=== PATIENT | female | born 1935 | race Hispanic/Latino ===

== ENCOUNTER 2017-04-11 07:23 | Inpatient (IN) | payer MEDICARE, BC ==
--- NOTE | 2017-04-11 08:16 | ED PDOC ---
Arrival/HPI - General Chief Complaint: Dizziness/Lightheaded Time Seen by Provider: 04/11/17 07:34 Historian: Patient - History of Present Illness Narrative History of Present Illness (Text): 04/11/17 07:59 An 81 year old female, whose past medical history includes hypertension, TIA, and diabetes, presents to the emergency department for dizziness. The patient states that the moment she woke up this morning she noticed dizziness. She states that she tried to get up and walk when she fell, landed on her right sided, hit her head. No loss of consciousness. No weakness to arms or legs. No visual symptoms. The patient notes that last night she did not experience these symptoms. The patient denies LOC, injury/trauma, fevers, chills, headache, chest pain, shortness of breath, dyspnea on exertion, cough, abdominal pain, nausea, vomiting, diarrhea, back pain, neck pain, urinary/bowel changes, or any other complaint. PMD: Dr. Cordova 04/11/17 18:44 Time/Duration: Other (This Morning) Symptom Onset: Sudden Symptom Course: Unchanged Activities at Onset: Rest, Light Context: Home Past Medical History - Provider Review Nursing Documentation Reviewed: Yes - Infectious Disease Hx of Infectious Diseases: None - Tetanus Immunization Tetanus Immunization: Unknown - Cardiac Hx Hypertension: Yes - Neurological Hx Transient Ischemic Attacks (TIA): Yes Hx Vertigo: Yes - HEENT Hx HEENT Disorder: Yes (sx for deviated septum and tonsils) - Endocrine/Metabolic Hx Diabetes Mellitus Type 2: Yes (No medications) Hx Hypothyroidism: Yes - Hematological/Oncological Hx Blood Transfusions: No Hx Blood Transfusion Reaction: No - Musculoskeletal/Rheumatological Hx Musculoskeletal Disorders: No - Gastrointestinal Hx Gastrointestinal Disorders: Yes (colon polyps removed 2 yrs ago) - Psychiatric Hx Emotional Abuse: No Hx Physical Abuse: No Hx Substance Use: No - Surgical History Hx Hysterectomy: Yes - Anesthesia Hx Anesthesia Reactions: Yes Hx Malignant Hyperthermia: No - Suicidal Assessment Feels Threatened In Home Enviroment: No Family/Social History - Physician Review Nursing Documentation Reviewed: Yes Family/Social History: No Known Family HX Smoking Status: Never Smoked Hx Alcohol Use: No Hx Substance Use: No Hx Substance Use Treatment: No Allergies/Home Meds Allergies/Adverse Reactions: Allergies No Known Allergies Allergy (Verified 04/11/17 07:37) Home Medications: Home Meds Medication Instructions Recorded Confirmed Amlodipine/Valsartan [Amlodipine 1 tab PO DAILY 04/11/17 04/11/17 Besylate-Valsartan 5 mg-160 mg] Carbidopa/Levodopa 25/100 mg 0.5 tab PO BID 04/11/17 04/11/17 [Sinemet] Furosemide [Lasix] 40 mg PO DAILY PRN 04/11/17 04/11/17 Levothyroxine [Synthroid] 112 mcg PO DAILY 04/11/17 04/11/17 Olopatadine 0.1% Opht [Patanol 5 ml OD DAILY 04/11/17 04/11/17 0.1% Opht Soln] Rosuvastatin Calcium [Crestor] 5 mg PO DAILY 04/11/17 04/11/17 Tobramycin/Dexamethasone [Tobradex 5 ml OD TID 04/11/17 04/11/17 St 0.05%-0.3% 5 ml] Review of Systems - Physician Review All systems were reviewed & negative as marked: Yes - Review of Systems Constitutional: absent: Fevers, Night Sweats ENT: absent: Sore Throat Respiratory: absent: SOB, Cough Cardiovascular: Other (near syncope). absent: Chest Pain, ROGERS Gastrointestinal: absent: Abdominal Pain, Stool Changes, Diarrhea, Nausea, Vomiting Genitourinary Female: absent: Urine Output Changes Musculoskeletal: absent: Back Pain, Neck Pain Neurological: Dizziness. absent: Headache Physical Exam Vital Signs Reviewed: Yes Vital Signs Temp Pulse Resp BP Pulse Ox 04/11/17 12:18 174/88 H 04/11/17 11:47 72 16 159/72 H 100 04/11/17 09:47 97.9 F 67 17 152/70 H 98 04/11/17 07:36 97.8 F 68 16 169/67 H 98 Temperature: Afebrile Blood Pressure: Hypertensive Pulse: Regular Respiratory Rate: Normal Appearance: Positive for: Well-Appearing, Non-Toxic, Comfortable Pain Distress: None Mental Status: Positive for: Alert and Oriented X 3 Finger Stick Blood Glucose: 132 - Systems Exam Head: Present: Atraumatic, Normocephalic Pupils: Present: PERRL Extroacular Muscles: Present: EOMI, Other (visual acuity and mendosa intact) Mouth: Present: Moist Mucous Membranes Pharnyx: No: ERYTHEMA Neck: Present: Normal Range of Motion. No: Meningeal Signs Respiratory/Chest: Present: Clear to Auscultation. No: Respiratory Distress Cardiovascular: Present: Regular Rate and Rhythm, Murmurs Abdomen: No: Tenderness Back: No: CVA Tenderness Upper Extremity: Present: Other (superficial abrasion to thumb). No: Cyanosis Lower Extremity: No: Edema Neurological: Present: CN II-XII Intact, Speech Normal, Motor Func Grossly Intact, Normal Sensory Function, Normal Cerebellar Funct, Norm Deep Tendon Reflexes, Memory Normal, Normal 2Pt Descrimination. No: Gait Normal Skin: Present: Warm Psychiatric: Present: Alert Medical Decision Making ED Course and Treatment: 04/11/17 08:31 Impression: An 81 year old female presents to the emergency department with dizziness since she woke up this morning. Plan: -- Head CT -- EKG -- Labs -- Chest X-ray -- Aspirin -- Reassess and disposition Prior Visits: Notes and results from previous visits were reviewed. Patient was last seen in the emergency department on 05/11/13, the patient was treated in the emergency department for hyperglycemia and UTI. The patient was discharged home on Bactrim and advised to follow up with her PMD. Progress Notes: Patient with prior hx of dizziness and gait disturbance which she states she has been evaluated by neurologist Dr. Rogers. States that last night she felt well, and AWOKE with gait instability to point that she fell onto her right side , but did not pass out. On exam, no nystagmus noted, no acute visual distrubance , no chest pain or sob. No slurred speech or facial droop. NO headache. No fever. No focal weakness. Normal rapid alternating movements and normal finger to nose. She is unsteady when she attempt to stand. There is abrasion to thumb but no bony pain or deformity. No hip or upper extremity pain or deformity noted. No neck pain noted. Abrasion cleaned. NOT A TPA CANDIDATE as patient awoke with these symptoms, unknown time of onset , and mild symptoms at this time. PRIOR mri and mra were reviewed from earlier this year. CT head ordered. CT HEAD WITHOUT CONTRAST Dictator : Poli Hoyos MD Report Date : 04/11/2017 09:05:25 IMPRESSION: No acute findings CHEST X-RAY Dictator : Poli Hoyos MD Report Date : 04/11/2017 10:27:49 IMPRESSION: No active disease. On re-exam, no chest pain or sob. NO dizziness at rest. Symptoms not worse with turning head. No recent URI or ear pain. ASA ordered. Patient will be admitted to telemetry bed for cardiac monitoring, serial neuro exams, and neuro consultation. Case d/w her PMD Dr. Cordova, who requests admission to Dr. Montague's service. Treatment plan reviewed with patient. - Lab Interpretations Lab Results: 04/11/17 08:23 04/11/17 08:23 Lab Results 04/11/17 08:25: Blood Type AB POSITIVE, Antibody Screen Negative, BBK History Checked No verified bt 04/11/17 08:23: Sodium 143, Potassium 4.0, Chloride 107, Carbon Dioxide 28, Anion Gap 12, BUN 29 H, Creatinine 1.0, Est GFR ( Amer) > 60, Est GFR ( Non-Af Amer) 53, Random Glucose 147 H, Calcium 9.1, Total Bilirubin 0.6, AST 22 , ALT 33, Alkaline Phosphatase 74, Lactate Dehydrogenase 478, Total Creatine Kinase 51, Troponin I < 0.01, Total Protein 6.0, Albumin 3.6, Globulin 2.4, Albumin/Globulin Ratio 1.5, Triglycerides 50, Cholesterol 133, LDL Cholesterol Direct 41, HDL Cholesterol 81 H 04/11/17 08:23: PT 11.4, INR 1.04, APTT 25.4 04/11/17 08:23: WBC 3.2 L, RBC 4.22, Hgb 12.8, Hct 39.3, MCV 93.1, MCH 30.3, MCHC 32.6, RDW 13.2, Plt Count 143, MPV 9.8, Gran % 60.7, Lymph % (Auto) 28.2, Brantley % (Auto) 7.4 H, Eos % (Auto) 3.4, Baso % (Auto) 0.3, Gran # 1.96, Lymph # 0.9 L, Brantley # 0.2, Eos # 0.1, Baso # 0.01 04/11/17 07:33: POC Glucose (mg/dL) 132 H I have reviewed the lab results: Yes - RAD Interpretation Radiology Orders: 04/11/17 08:06 HEAD W/O CONTRAST [CT] Stat CHEST PORTABLE [RAD] Stat - EKG Interpretation Interpreted by ED Physician: Yes Type: 12 lead EKG - Medication Orders Current Medication Orders: Amlodipine Besylate (Norvasc) 10 mg PO DAILY [facility] Last Admin: 04/11/17 12:18 Dose: 10 mg MAR Blood Pressure Document 04/11/17 12:18 (Rec: 04/11/17 12:19 [id number]) Blood Pressure Blood Pressure (100/60-150/90 mm Hg) 174/88 Aspirin (Aspirin Chewable) 81 mg PO DAILY [facility] Atorvastatin Calcium (Lipitor) 10 mg PO DIN [facility] Last Admin: 04/11/17 18:00 Dose: 10 mg Levothyroxine Sodium (Synthroid) 112 mcg PO 0600 [facility] Meclizine HCl (Antivert) 12.5 mg PO TID [facility] Last Admin: 04/11/17 18:01 Dose: 12.5 mg Discontinued Medications Aspirin (Aspirin) 325 mg PO STAT ONE Stop: 04/11/17 08:08 Last Admin: 04/11/17 08:28 Dose: 325 mg Levothyroxine Sodium (Synthroid) 50 mcg PO 0600 [facility] - Scribe Statement The provider has reviewed the documentation as recorded by the Nani Puentes Provider Scribe Attestation: All medical record entries made by the Scribe were at my direction and personally dictated by me. I have reviewed the chart and agree that the record accurately reflects my personal performance of the history, physical exam, medical decision making, and the department course for this patient. I have also personally directed, reviewed, and agree with the discharge instructions and disposition. Disposition/Present on Arrival - Present on Arrival Any Indicators Present on Arrival: No History of DVT/PE: No History of Uncontrolled Diabetes: No Urinary Catheter: No History of Decub. Ulcer: No History Surgical Site Infection Following: None - Disposition Have Diagnosis and Disposition been Completed?: Yes Diagnosis: Dizziness, Gait disturbance, Near syncope, Abrasion Disposition: HOSPITALIZED Disposition Time: 09:35 Patient Plan: Admission, Telemetry Patient Problems: Current Active Problems Problem Status Onset Dizziness Acute Gait disturbance Acute Condition: FAIR
[2017-04-11 08:28] LABS: BASO # 0.01 K/mm3 (0.0-2.0); BASO % 0.3 % (0.0-3.0); EOS # 0.1 (0.0-0.7); EOS % 3.4 % (1.5-5.0); GRAN # 1.96 (1.4-6.5); GRAN % 60.7 % (50.0-68.0); HEMATOCRIT 39.3 % (36.0-48.0); LYMPH # 0.9 (1.2-3.4); LYMPH % 28.2 % (22.0-35.0); MEAN CELL VOLUME 93.1 fl (80.0-105.0); MEAN CORPUSCULAR HEMOGLOBIN 30.3 pg (25.0-35.0); MEAN CORPUSCULAR HGB CONC 32.6 g/dl (31.0-37.0); MEAN PLATELET VOLUME 9.8 fl (7.0-11.0); MONO # 0.2 (0.1-0.6); MONO % 7.4 % (1.0-6.0); RED CELL DISTRIBUTION WIDTH 13.2 % (11.5-14.5); WHITE BLOOD COUNT 3.2 10^3/ul (4.5-11.0)
[2017-04-11 08:39] LABS: ALB/GLOB RATIO 1.5 (1.1-1.8); ALKALINE PHOSPHATASE 74 U/L (38-126); ALT/SGPT 33 U/L (7-56); AST/SGOT 22 U/L (14-36); BILIRUBIN,TOTAL 0.6 mg/dL (0.2-1.3); BLOOD UREA NITROGEN 29 mg/dL (7-21); CALCIUM 9.1 mg/dL (8.4-10.5); CARBON DIOXIDE 28 mmol/L (21-33); CHLORIDE 107 mmol/L (98-107); CHOLESTEROL 133 mg/dL (130-200); GFR AFRICAN-AMERICAN > 60; GLUCOSE,RANDOM 147 mg/dL (70-110); SODIUM 143 mmol/L (132-148)
[2017-04-11 08:41] LABS: INR 1.04 (0.93-1.08); PARTIAL THROMBOPLASTIN TIME 25.4 Seconds (25.1-36.5)
[2017-04-11 09:01] LABS: TROPONIN I < 0.01 ng/mL
--- NOTE | 2017-04-11 09:07 | CT ---
PROCEDURE: CT HEAD WITHOUT CONTRAST. HISTORY: dizziness, hx of cva COMPARISON: None available. TECHNIQUE: Axial computed tomography images were obtained through the head/brain without intravenous contrast. Radiation dose: Total exam DLP = 920 mGy-cm. This CT exam was performed using one or more of the following dose reduction techniques: Automated exposure control, adjustment of the mA and/or kV according to patient size, and/or use of iterative reconstruction technique. FINDINGS: HEMORRHAGE: No intracranial hemorrhage. BRAIN: No mass effect or edema. Chronic microvascular changes are seen in the periventricular white matter. No acute findings VENTRICLES: Unremarkable. No hydrocephalus. CALVARIUM: Unremarkable. PARANASAL SINUSES: Unremarkable as visualized. No significant inflammatory changes. MASTOID AIR CELLS: Unremarkable as visualized. No inflammatory changes. OTHER FINDINGS: None. IMPRESSION: No acute findings
--- NOTE | 2017-04-11 10:29 | RAD ---
HISTORY: dizziness COMPARISON: 05/11/2013 FINDINGS: LUNGS: No active pulmonary disease. PLEURA: No significant pleural effusion identified, no pneumothorax apparent. CARDIOVASCULAR: Normal. OSSEOUS STRUCTURES: No significant abnormalities. VISUALIZED UPPER ABDOMEN: Normal. OTHER FINDINGS: None. IMPRESSION: No active disease.
[2017-04-11 12:44] LABS: CHOLESTEROL 142 mg/dL (130-200)
[2017-04-11 12:59] LABS: TROPONIN I < 0.01 ng/mL
[2017-04-11 14:05] VITALS: BMI 28.3
--- NOTE | 2017-04-11 14:34 | CARD ---
APPROVED REPORT EKG Measurement Heart [id number] <Conclusion> Normal sinus rhythm Cannot rule out Anteroseptal infarct, age undetermined Abnormal ECG
--- NOTE | 2017-04-11 17:09 | MRI ---
PROCEDURE: MRI BRAIN WITHOUT CONTRAST HISTORY: near syncope COMPARISON: 11/29/2016 MRI TECHNIQUE: Multiplanar, multisequence MR images of the brain were obtained without intravenous contrast enhancement. FINDINGS: HEMORRHAGE: None DWI: No evidence of an acute or early subacute infarction. BRAIN PARENCHYMA: No mass effect or edema. Severe chronic microvascular changes are seen in the periventricular white matter. The findings are unchanged. There are no acute findings VENTRICLES: Unremarkable. No hydrocephalus. CRANIUM: Unremarkable. ORBITS: Grossly unremarkable. PARANASAL SINUSES/MASTOIDS: Clear VASCULAR SYSTEM: Skull base flow voids intact. OTHER FINDINGS: None. IMPRESSION: No acute intracranial abnormalities.
--- NOTE | 2017-04-12 03:58 | CON ---
NEUROLOGY CONSULTATION DATE: REASON FOR CONSULTATION: Dizziness. HISTORY OF PRESENT ILLNESS: The patient is an 81-year-old female who has been asked for evaluation of dizziness. The patient stated this morning when she woke up she was feeling extremely dizzy, which was described as spinning sensation. She tries to get up and walk and she fell and landed on a right side, hit her head. She did not have any loss of consciousness. She states, yesterday also she fell for no reason and was unable to get up. She did not have any loss of hearing or ringing in the ears. She denies any nausea or vomiting associated with dizziness. She does states that when she moves her head she feels dizzy. She also states that she has difficulty with walking because of dizziness. Denies any focal weakness in arms or legs. REVIEW OF SYSTEMS: Denies any headache. Positive for dizziness. Denies any chest pain, shortness or breath, abdominal pain, constipation, diarrhea, cough, sputum production. PAST MEDICAL HISTORY: Includes, hypercholesterolemia, hypothyroidism, hypertension. MEDICATIONS: At home included; furosemide, Sinemet, amlodipine, tobramycin, Crestor, levothyroxine. ALLERGIES: NO KNOWN DRUG ALLERGIES. SOCIAL HISTORY: The patient denies smoking, use of alcohol or illicit drugs. FAMILY HISTORY: Reviewed and noncontributory to the case. PHYSICAL EXAMINATION GENERAL: The patient is an elderly female lying on bed in no acute distress. VITAL SIGNS: Blood pressure is lying 142/64 and standing 172/80, heart rate is 70 per minute, breathing at a rate of 16 per minute, temperature is 98.2 degree Fahrenheit. HEENT: Head is normocephalic and atraumatic. NECK: Supple. There are no carotid bruits. LUNGS: Clear. CARDIOVASCULAR: S1 and S2 audible. No murmurs. ABDOMEN: Soft and nontender. Bowel sounds are present. NEUROLOGIC: Mental status: The patient is awake and alert,oriented to time, place and person. Speech is fluent. Naming and repetition normal. Memory and cognition are intact. Cranial nerve examination: Pupils are 4 mm bilaterally reactive to light. Visual mendosa are full. Extraocular movements are intact. There is no facial asymmetry. The plantar are downgoing bilaterally. Tongue in the midline. Motor examination, tone is normal. Power is 5/5 bilaterally in all extremities. Reflexes are +1 and symmetrical. Cerebellar; [id number] shows no dysmetria. Gait is deferred at the movement as she is complaining of dizziness. Usually, the patient walks with the help of walker. LABORATORY DATA: Labs reviewed shows WBC of 3.2, hemoglobin 12.8, hematocrit of 39.3 and platelets of 143. Sodium is 143, potassium 4.0, chloride of 107,carbon dioxide content 28, BUN of 29, creatinine of 1.0 and glucose of 147. She had CT scan of the head done, which shows no acute findings. Subsequently, she had MRI of the brain done, which shows no acute intracranial abnormalities. Severe chronic microvascular ischemic changes noted. IMPRESSION: 1. 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 2. Gait dysfunction. RECOMMENDATION: 1. The patient was started on meclizine 12.5 mg 3 times a day, which is to be continued. 2. The patient also to be continued on aspirin with underlying cerebrovascular disease. 3. The patient to be started on physical therapy for gait imbalance. 4. The patient did have an electroencephalogram. 5. This may be done as outpatient. 6. Please continue supportive care and other treatment. Thank you for the opportunity to participate in the care of this patient. Peter Louis MD
--- NOTE | 2017-04-12 05:33 | HP ---
HISTORY OF PRESENT ILLNESS: The patient is an 81-year-old, seen and examined. The patient of , came to the emergency room. He was feeling very dizzy. The patient states she woke up this morning and when she got out, she had extreme dizziness as if she is going to pass out. Even then she woke up, but she fell. Although, she states that when she went to bed, she was feeling fine. Denies any loss of consciousness. Did not hit her head. Denies any fever. No nausea or vomiting. No diarrhea. No chest pain. No palpitation. No cough or congestion. No hemoptysis. No hematemesis. PAST MEDICAL HISTORY: Significant for, 1. Vertigo. 2. TIA. 3. History of noninsulin-dependent diabetes. 4. Hypertension. 5. She had a nuclear stress test in 2011, negative. 6. She has carotid ultrasound done in 01/2015; it was unremarkable, 20% to 39% of blockage. 7. 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 No evidence of aneurysm. 8. MRI of the brain shows extensive periventricular white matter signal abnormality. ALLERGIES: SHE IS NOT ALLERGIC TO ANY MEDICATION MEDICATIONS AT HOME: There is no medication noted. REVIEW OF SYSTEMS: Complained of feeling dizzy and lightheaded. PHYSICAL EXAMINATION: GENERAL: She is awake, alert, oriented, communicative. VITAL SIGNS: She is afebrile. Pulse 67, respirations 17, blood pressure 152/70. LUNGS: Bilateral good fair airflow. No rhonchi or crackles. HEART: S1 and S2 audible. ABDOMEN: Soft, nontender, no rebound, no guarding. NEUROLOGIC: She is awake, alert, oriented, communicative. LABORATORY EXAM: WBC 3.2, hemoglobin 12.8, hematocrit 39, and platelets of 143. PT 11.4, INR 1.04. Chemistry; sodium 143, potassium 4.0, chloride 107, CO2 of 28, BUN 29, and creatinine 1.0. Blood sugar of 147. HDL is 81. She had a CT scan of the head done that is unremarkable. X-ray chest is negative for infiltrates. ASSESSMENT: 1. Dizziness, rule out lacunar infarct versus vertigo. No focal deficit. 2. History of hypertension. 3. History of [id number] diabetes, diet-controlled. 4. Hypothyroidism. PLAN: I will order for a carotid Doppler. We will start her on aspirin. Neuro consult will be requested. We will start her on antihypertensive, start physical therapy. We will evaluate the patient in a.m. Kami Montague MD
[2017-04-12] MEDS ORDERED: Levothyroxine 50 MCG TAB PO SCH (06:00)
[2017-04-12] MEDS: Levothyroxine 112 MCG TAB PO SCH (06:42)
[2017-04-12 07:39] LABS: ALB/GLOB RATIO 1.5 (1.1-1.8); ALKALINE PHOSPHATASE 70 U/L (38-126); ALT/SGPT 47 U/L (7-56); AST/SGOT 24 U/L (14-36); BILIRUBIN,TOTAL 0.7 mg/dL (0.2-1.3); BLOOD UREA NITROGEN 25 mg/dL (7-21); CALCIUM 9.1 mg/dL (8.4-10.5); CARBON DIOXIDE 30 mmol/L (21-33); CHLORIDE 106 mmol/L (95-110); GFR AFRICAN-AMERICAN > 60; GLUCOSE,RANDOM 109 mg/dL (70-110); SODIUM 142 mmol/L (132-148); TOTAL PROTEIN 5.7 g/dL (5.8-8.3)
[2017-04-12 08:00] LABS: FREE T4 1.03 ng/dL (0.78-2.19)
[2017-04-12 08:14] LABS: THYROID STIMULATING HORMONE 5.25 mIU/mL (0.46-4.68)
--- NOTE | 2017-04-12 12:18 | PN ---
SUBJECTIVE: The patient has no complaints of any chest pain. No shortness of breath. She says her dizziness is better. PHYSICAL EXAMINATION: VITAL SIGNS: Temperature is 98.5, pulse is 65, blood pressure 150/62, respiration is 18. GENERAL: The patient is lying in bed, flat, comfortable. HEENT: No oral lesion. Anicteric sclerae. Moist mucosa. NECK: No JVD, adenopathy, or thyromegaly. CARDIOVASCULAR: S1 and S2, regular. No murmurs, rubs, or gallops. LUNGS: Clear to auscultation bilaterally. No wheeze, rales, or rhonchi. ABDOMEN: Bowel sounds are positive, soft, nontender and nondistended. EXTREMITIES: No cyanosis, clubbing or edema. LABORATORY DATA: White count 3.2, hemoglobin 12.8. IMAGING: MRI of the brain shows no acute intracranial abnormalities. ASSESSMENT: 1. Dizziness, improved. 2. Hypertension. 3. Diabetes type 2. 4. Hypothyroidism. PLAN: The patient is currently comfortable, is on aspirin. The patient had a MRI that shows no acute intracranial abnormalities. The patient is on Norvasc for hypertension. She is going to continue with Colace for constipation and Lipitor for dyslipidemia. She is on Synthroid for hypothyroidism. The patient has a carotid Doppler, I have been ordered and is pending. Jeffery Ambriz MD
--- NOTE | 2017-04-12 18:23 | CON ---
DATE: 04/12/2017 REFERRING PHYSICIAN: Kami Montague MD REASON FOR CONSULTATION: Evaluation of a patient known to me from outpatient followup, presents with near syncope, dizziness, and vertigo. HISTORY OF PRESENT ILLNESS: The patient is a pleasant 81-year-old white female with a history of hypertension, history of carotid artery narrowing, history of mild hyperlipidemia, history of diet-controlled NIDDM, history of hypothyroidism. The patient states that when she woke up Thursday morning, she was profoundly dizzy, felt like she could not get out of bed, felt that she was going to fall, she had mild vertigo. She presented to the hospital for evaluation of a possible impending CVA. The patient was seen in the emergency room, found not to have a CVA and was admitted for observation to telemetry. The patient had a head CT scan which showed chronic ischemic changes. She had an MRI of the head which showed chronic ischemic changes, no acute findings. She is scheduled for a carotid Doppler study. Her blood pressure control was stable post transfer out of the emergency room. In the emergency room, she had a blood pressure as high as 174 systolic with a diastolic of 88. We are asked to evaluate the patient for management of her hypertension in the setting of her lightheadedness and dizziness. PAST MEDICAL HISTORY: Significant for hypertension; peripheral vascular disease with mild carotid artery stenosis; NIDDM, diet controlled; hypothyroidism; osteopenia. MEDICATIONS AT HOME: Include that of Lasix p.r.n., Sinemet, Exforge 5/160, eyedrops, Crestor, Synthroid. ALLERGIES: NO KNOWN ALLERGIES TO MEDICATIONS. CURRENT MEDICATIONS IN HOSPITAL: Include that of meclizine, aspirin, Colace, Lipitor, Norvasc and Synthroid. SOCIAL HISTORY: No history of cigarette smoking. The patient was never a cigarette smoker. No history of alcohol use. The patient drinks coffee and tea. The patient has a supportive family. FAMILY HISTORY: Mother and father of old age, noncontributory. REVIEW OF SYSTEMS: GENERAL: The patient states weight and appetite have been stable. ENT: Denies any hearing or visual problems. PULMONARY: No shortness of breath. No COPD, no bronchitis, emphysema. CARDIAC: No history. GI: No nausea, no vomiting, no diarrhea. No constipation, abdominal pain. : No history of chronic kidney disease. No history of urinary tract infections. PROFESSIONAL SKATE[employer]ER: Postmenopausal. ENDOCRINE: History of diet-controlled diabetes. Hemoglobin A1cs have remained normal. MUSCULOSKELETAL: No complaints. NEURO: History of intermittent dizziness. No history of seizures or syncope. Positive history of subclinical lacunar infarcts. HEME/ONC: No history of anemia or malignancy. PSYCHIATRIC HISTORY: Is negative. PHYSICAL EXAMINATION GENERAL: The patient is currently seen on telemetry. She remains in sinus rhythm. She appears to be in no acute distress. She is ambulating around the room with a cane. Her daughter is in the room. VITAL SIGNS: Blood pressure presently is ranging from 113-150 systolic, diastolic surgery from 49-68. Heart rate is 65, respiratory rate is 18, temperature 98.5, oxygen saturation is 97%. HEENT: Shows it to be normocephalic, atraumatic. Conjunctivae are pink. Sclera nonicteric. Pupils equal and reactive to light and accommodation. Extraocular muscles are intact. Posterior pharynx is normal. NECK: Supple. No neck vein distention. No thyromegaly, no lymphadenopathy, no bruits. CHEST: Clear to auscultation and percussion. No rales, no rhonchi, no wheezing. CARDIOVASCULAR: Shows a regular rate and rhythm without murmurs, rubs, or gallops. ABDOMEN: Soft. Nontender. No masses. No hepatosplenomegaly. Normal bowel sounds. No rebound or guarding. BACK: No CVAT. No spinal tenderness. EXTREMITIES: Show a normal gait while ambulating with a cane. No cyanosis, no clubbing, or edema. Distal lower extremity pulses 2+ bilaterally. NEUROLOGIC: Shows her to be alert, oriented x3. Deep tendon reflexes normal. No focal deficits. LABORATORY DATA AND IMAGING STUDIES: Admitting EKG showed normal sinus rhythm. Admitting chest x-ray showed no acute pulmonary disease. Admitting head CT and head MRI showed positive white matter ischemic changes consistent with a core infarcts. Carotid Doppler study is pending. CBC: White blood cell count 3.2, hemoglobin of 12.8 with a platelet count of 143,000. Coags normal. Chemistry showed normal electrolytes, BUN 25 with creatinine of 1.0. Calcium 9.1. Liver enzymes are normal. Albumin is 3.4. Free T4 level is normal at 1.03. Mild elevation of TSH of 5.25. No urine was. Microbiology: No cultures were sent. ASSESSMENT: 1. Status post episode of profound dizziness with mild vertigo. The patient was seen by Neurology, felt not to have any acute cerebral event. She was felt to have possible labyrinthitis with vertigo. The patient has had episodes similar to this in the past, but not as profound. She is currently on meclizine. She currently feels well. She is completing the neural workup as per neurology consultation. 2. Hypertension. Initial elevation of blood pressure on admission. Currently blood pressure is acceptable. The patient should return to taking Exforge 50/160. Calcium channel iesha therapy alone will not be enough to hold her. She was checked for orthostatic hypotension of anything. She had mild orthostatic hypotension. 3. Non-insulin dependent diabetes mellitus, diet controlled. Sugar control is acceptable. 4. History of peripheral vascular disease with history of internal carotid artery stenosis. This is being further evaluated with a carotid Doppler study. 5. History of hyperlipidemia. The patient had been on outpatient Crestor therapy and should return to taking this upon discharge. 6. History of osteopenia. The patient has been taking calcium and vitamin D supplements. PLAN 1. Discussed with the patient and her daughter in detail. There is no evidence for any ongoing acute cerebral event. In all likelihood, she had an episode of dizziness associated with vertigo, labyrinthitis. She is currently receiving medication for vertigo. She will likely need to use this on a p.r.n. basis in the outpatient setting. 2. Obtain carotid artery Doppler study in light of her history of carotid artery narrowing. 3. I would resume Exforge 5/160 upon discharge. 4. Explained to the patient that she did not have orthostatic hypotension, which she was under the impression that she had. She had orthostatic hypertension, will require blood pressure medication in the dose given to her in the outpatient setting. 5. Continue statin therapy upon discharge. 6. Continue to monitor the patient on telemetry. 7. Complete neuro workup and perhaps tentative discharge form in the next 24 hours. Thank you for letting me partake and share in the care of our mutual patient. Mayo Cordova MD
[2017-04-13] MEDS: Levothyroxine 112 MCG TAB PO SCH (06:17)
[2017-04-13] MEDS ORDERED: VALSARTAN PO SCH (10:00)
[2017-04-13] MEDS ORDERED: AMLODIPINE PO SCH (10:00)
--- NOTE | 2017-04-13 10:12 | PN ---
NEUROLOGY PROGRESS NOTE SUBJECTIVE: The patient is sitting on the chair, in no acute distress, still complains of dizziness which is described as woozy feeling. PHYSICAL EXAMINATION: VITAL SIGNS: Her blood pressure is 119/66, heart rate is 70 per minute, breathing at the rate of 16 per minute and temperature is 98.4 degree Fahrenheit. HEENT EXAM: Head is normocephalic and atraumatic. NECK: Supple. There are no carotid bruits. LUNGS: Clear. CARDIOVASCULAR EXAM: S1 and S2 audible. No murmurs. ABDOMEN: Soft and nontender. Bowel sounds present. NEUROLOGY EXAMINATION: Mental status: The patient is awake, alert and oriented to time, place and person. Speech is fluent. Naming and repetition is normal. Memory and cognition are intact. Cranial nerve examination: Pupils are 3 mm bilaterally, reactive to light. Visual mendosa are full. Extraocular movements are intact. There is no facial asymmetry. Palate is upgoing bilaterally and tongue is midline. Motor examination: Tone is normal. Power is 5/5 bilaterally in all extremities. Reflexes are +1 and symmetrical. Plantars are downgoing bilaterally. Gait is unsteady. IMPRESSION: 1. Dizziness, likely secondary to labyrinthine dysfunction with falls. 2. Gait dysfunction. RECOMMENDATIONS: 1. The patient to be continued on meclizine. 2. The patient also to be continued on aspirin with underlying cerebrovascular disease. 3. The patient to have physical therapy for gait imbalance. 4. The patient is a good rehab candidate. 5. Please continue supportive care and other treatments. Thank you for the opportunity to participate in the care of this patient. Peter Louis MD
[2017-04-13] MEDS: AMLODIPINE PO SCH (10:34)
[2017-04-13] MEDS: VALSARTAN PO SCH (10:34)
--- NOTE | 2017-04-13 11:54 | US ---
PROCEDURE: Bilateral carotid artery duplex ultrasound HISTORY: Carotid stenosis syncope PHYSICIAN(S): Mushtaq Sales MD. TECHNIQUE: Duplex sonography and color-flow Doppler were used to evaluate the carotid bifurcations and limited segments of the vertebral arteries bilaterally. FINDINGS: There is mild smooth heterogeneous plaque noted at the carotid bifurcations bilaterally. The peak systolic velocity in the proximal right internal carotid artery is 85 cm/sec. This corresponds to a 20 to 39% proximal right ICA stenosis. Normal systolic velocities are noted in the proximal right external carotid artery. There is antegrade flow in the right vertebral artery. The peak systolic velocity in the proximal left internal carotid artery is 89 cm/sec. This corresponds to a 20 to 39% proximal left ICA stenosis. Normal systolic velocities are noted in the proximal left external carotid artery. There is antegrade flow in the left vertebral artery. IMPRESSION: 1. Bilateral 20-39% proximal ICA stenoses. 2. Antegrade flow in both vertebral arteries.
--- NOTE | 2017-04-13 14:37 | PN ---
DATE: 04/13/2017 SUBJECTIVE: The patient is an 81-year-old, seen and examined, sitting in chair, still feel dizzy, has unstable gait. Denies any nausea or vomiting. PHYSICAL EXAMINATION: VITAL SIGNS: She is afebrile, pulse 70, respirations 18, blood pressure 119/66. LUNGS: Bilateral fair airflow. No rhonchi or crackle. HEART: S1 and S2, audible. ABDOMEN: Soft, nontender. No rebound. No guarding. NEUROLOGIC: The patient is awake, alert, oriented, communicative, able to move all extremity, has generalized weakness. LABORATORY DATA: Her hemoglobin A1c is 7.1, TSH is 5.25. Her MRI of the brain is unremarkable. Carotid Doppler shows bilateral 39% ICA. ASSESSMENT: 1. Extreme dizziness, status post fall. 2. Hypothyroidism. 3. Mild dehydration. 4. History of hypertension. 5. Vertigo. 6. Deconditioning and difficulty walking. 7. Non-insulin dependent diabetes. PLAN: The patient is clinically stable, medically, but she is unstable. Given her age, she needs physical therapy. Requested for TCU evaluation as soon as bed is available. The patient can be transferred to TCU. Kami Montague MD
--- NOTE | 2017-04-13 18:34 | PN ---
DATE: 04/13/2017 SUBJECTIVE: Patient is seen sitting in chair. She has missed her periods.. She denies any headaches, dizziness. She denies any chest pain, palpitations. She denies any abdominal pain. She does report that she gets dizzy when she stands up. She denies any urinary complaints. PHYSICAL EXAMINATION: GENERAL: Elderly male, sitting in chair. VITAL SIGNS: Blood pressure 119/66, heart rate 70, respiratory rate 18, temperature 98.4. HEENT: Normocephalic, atraumatic. Neck: Supple, no JVD. LUNGS: Bilateral equal air entry, rales present. CARDIAC: S1 and S2, regular rate and rhythm, no murmur, no rub. ABDOMEN: Obese, distended, soft, nontender, bowel sounds present. EXTREMITIES: No lower extremity edema. INTAKE AND OUTPUT: 540/700. LABORATORY DATA: No CBC today. Chemistry yesterday; sodium 142, potassium 4.0, chloride 106, CO2 of 30, BUN 25, creatinine 1.0, glucose 109, calcium 9.1, A1c 7.1, albumin 3.4. MRI of the brain from 04/11/2017, no acute intracranial abnormalities. Carotid ultrasound, bilateral 20% to 39% proximal ICA stenosis. Antegrade flow in both vertebral arteries. CURRENT MEDICATIONS: Antivert, aspirin, Colace, Lipitor, Synthroid. ASSESSMENT: 1. Near-syncope/dizziness and vertigo. 2. Hypertension. 3. Hyperlipidemia. 4. Peripheral vascular disease. 5. Kkr-cylavwb-fmqhvaavk diabetes mellitus. 6. Osteopenia. PLAN: 1. No evidence of any cerebrovascular events. 2. Continue Exforge. 3. Continue statin. 4. Ambulate the patient. 5. Check orthostatic vital signs. Indu Holt MD
[2017-04-14] MEDS: Levothyroxine 112 MCG TAB PO SCH (08:27)
[2017-04-14] MEDS: AMLODIPINE PO SCH (09:50)
[2017-04-14] MEDS: VALSARTAN PO SCH (09:50)
[2017-04-14] MEDS ORDERED: Home Med 1 UNIT PO SCH (14:00)
--- NOTE | 2017-04-14 14:23 | PN ---
SUBJECTIVE: The patient is currently seen on 5R. She is sitting in bed. She no longer has any vertigo or dizziness. She states that she has not gotten up to walk without the help of physical therapy. The patient is interested in going to the TCU for rehabilitation. Noninvasive carotid study was noted. Only minimal narrowing 20-39%. MEDICATIONS: Medication list reviewed. The patient is currently on Antivert, aspirin, Colace, Exforge, Lipitor, Synthroid. OBJECTIVE: INTAKE/OUTPUT: Intake 540, output 700. VITAL SIGNS: Blood pressure ranging from 126-150 systolic, diastolic 65-76. Heart rate 67, temperature 97 with a respiratory rate of 18. Oxygen saturation is 98%. HEENT: Exam shows her to be normocephalic, atraumatic. Conjunctivae are pink. Sclera nonicteric. NECK: Supple. No neck vein distention. CHEST: Clear to auscultation and percussion. CARDIOVASCULAR: Regular rate and rhythm without murmurs, rubs or gallops noted. ABDOMEN: Soft. Bowel sounds normal. No rebound or guarding. No masses. EXTREMITIES: Show no lower extremity edema. No cyanosis or clubbing. Distal lower extremity pulses 2+ bilaterally. NEURO: Shows her to be alert, oriented with no gross focal motor or sensory deficits noted. LABORATORY DATA AND IMAGING: Carotid Doppler study shows mild bilateral internal carotid artery narrowing. No recent labs. Chemistries from 04/12 showed a BUN of 25, creatinine of 1.0. Electrolytes were all normal. Hemoglobin A1c was 7.1%. Normal free T4 level. Slight elevation of TSH. ASSESSMENT: 1. Status post episode of profound dizziness and vertigo. Perhaps labyrinthitis. MRI of the head and CT scans are all negative for any acute findings. Noninvasive carotid study shows no significant narrowing. The patient had been seen by Neurology. 2. History of hypertension. Initial blood pressure was elevated at the time of presentation. Currently, she remains normotensive on Exforge therapy 5/160. The patient does not require any additional amlodipine. 3. Rkj-cuvrepz-cwhlzxupy diabetes mellitus. Hemoglobin A1c 7.1%. The patient will continue a diabetic diet. 4. History of hyperlipidemia. The patient will continue statin therapy. In the outpatient, she was on Crestor. She is currently on Lipitor. 5. History of osteopenia, currently stable on calcium, vitamin D therapy. PLAN: 1. Agree with intensified physical therapy and plan for the patient to transfer to the TCU. 2. Continue present blood pressure medication. 3. Continue Antivert. Attempt to wean off this medication as labyrinthitis resolves. 4. Follow labs on a periodic basis. Mayo Cordova MD
[2017-04-15] MEDS: Levothyroxine 112 MCG TAB PO SCH (06:34)
[2017-04-15 06:44] LABS: HEMATOCRIT 39.3 % (36.0-48.0); MEAN CELL VOLUME 93.8 fl (80.0-105.0); MEAN CORPUSCULAR HEMOGLOBIN 30.5 pg (25.0-35.0); MEAN CORPUSCULAR HGB CONC 32.6 g/dl (31.0-37.0); MEAN PLATELET VOLUME 9.9 fl (7.0-11.0); RED CELL DISTRIBUTION WIDTH 13.2 % (11.5-14.5); WHITE BLOOD COUNT 4.4 10^3/ul (4.5-11.0)
[2017-04-15 07:07] LABS: ALB/GLOB RATIO 1.4 (1.1-1.8); BILIRUBIN,TOTAL 0.7 mg/dL (0.2-1.3); CALCIUM 9.2 mg/dL (8.4-10.5); MAGNESIUM 2.1 mg/dL (1.7-2.2); PHOSPHOROUS 3.5 mg/dL (2.5-4.5); POTASSIUM 4.8 mmol/L (3.6-5.0); TOTAL PROTEIN 5.7 g/dL (5.8-8.3)
--- NOTE | 2017-04-15 09:32 | CP.PCM.PN ---
Subjective - Date & Time of Evaluation Date of Evaluation: 04/15/17 Time of Evaluation: 09:28 - Subjective Subjective: Neurology progress note for Dr. Rodriguez's service Patient seen and examined with daughter at bedside. No acute overnight events or new complaints reported. Denied chest pain, palpitations, SOB. Objective - Vital Signs/Intake and Output Vital Signs (last 24 hours): Temp Pulse Resp BP Pulse Ox 97.7 F 73 18 173/80 H 98 04/15/17 08:00 04/15/17 08:00 04/15/17 08:00 04/15/17 08:00 04/15/17 08:00 Intake and Output: 04/15/17 04/15/17 06:59 18:59 Intake Total 480 Balance 480 - Medications Medications: Current Medications Aspirin (Aspirin) 325 mg PO DAILY [facility] Atorvastatin Calcium (Lipitor) 10 mg PO DIN [facility] Last Admin: 04/14/17 17:33 Dose: 10 mg Docusate Sodium (Colace) 100 mg PO BID [facility] Last Admin: 04/14/17 17:33 Dose: Not Given Home Med (Home Med) 1 unit PO DAILY [facility] Last Admin: 04/14/17 09:50 Dose: 1 unit Home Med (Home Med) 1 unit PO DAILY [facility] Levothyroxine Sodium (Synthroid) 112 mcg PO 0600 [facility] Last Admin: 04/15/17 06:34 Dose: 112 mcg Meclizine HCl (Antivert) 12.5 mg PO TID [facility] Last Admin: 04/14/17 17:33 Dose: 12.5 mg - Labs Labs: 04/15/17 06:30 04/15/17 06:30 PT 11.4 SECONDS (9.4-12.5) 04/11/17 08:23 INR 1.04 (0.93-1.08) 04/11/17 08:23 APTT 25.4 Seconds (25.1-36.5) 04/11/17 08:23 - Constitutional Appears: No Acute Distress - Head Exam Head Exam: ATRAUMATIC, NORMAL INSPECTION, NORMOCEPHALIC - Eye Exam Eye Exam: EOMI Pupil Exam: PERRL - ENT Exam ENT Exam: Mucous Membranes Moist - Respiratory Exam Respiratory Exam: Clear to Ausculation Bilateral. absent: Rales, Rhonchi, Wheezes - Cardiovascular Exam Cardiovascular Exam: +S1, +S2. absent: Gallop, JVD, Murmur - GI/Abdominal Exam GI & Abdominal Exam: Soft. absent: Distended, Firm, Guarding, Rigid, Tenderness , Rebound - Neurological Exam Neurological Exam: Alert, Awake, CN II-XII Intact, Oriented x3 - Psychiatric Exam Psychiatric exam: Normal Affect, Normal Mood - Skin Skin Exam: Dry, Intact, Normal Color, Warm Assessment and Plan - Assessment and Plan (Free Text) Plan: 81yo female with history of -Recommend continue with meclizine for dizziness -Recommend continue aspirin for history of CAD -Continue with physical therapy for physical strengthening -Patient would benefit from subacute rehabilitation for further improvement of physical deconditioning -Continue present medical management as per primary team -Further recommendations as per attending, Dr. Rodriguez Patient seen and case discussed/reviewed with attending, Dr. Rodriguez
[2017-04-15] MEDS: VALSARTAN PO SCH (10:33)
[2017-04-15] MEDS: CEREFOLIN PO SCH (10:33)
[2017-04-15] MEDS: AMLODIPINE PO SCH (10:33)
--- NOTE | 2017-04-15 11:58 | PN ---
DATE: SUBJECTIVE: The patient is an 81-year-old, seen and examined, sitting in chair. She states she feels lot better, no dizziness, still has unstable gait. PHYSICAL EXAMINATION VITAL SIGNS: She is afebrile, pulse 75, respirations 17, blood pressure 125/71. LUNGS: Bilateral fair airflow. No rhonchi or crackles. HEART: S1 and S2 audible. ABDOMEN: Soft and nontender. No rebound. No guarding. NEUROLOGIC: The patient is awake, alert and oriented. Communicative. LABORATORY DATA: MRI of the brain is unremarkable. Carotid Doppler is unremarkable. ASSESSMENT: 1. Near syncope, status post fall. 2. Unstable gait. 3. Hypertension. 4. Hyperlipidemia. 5. Insulin-dependent diabetes. PLAN: Awaiting TCU evaluation and acceptance. If the patient is accepted in TCU sent for rehab. Kami Montague MD
--- NOTE | 2017-04-15 13:48 | PN ---
SUBJECTIVE: The patient is an 81-year-old, seen and examined, sitting in chair, seems to be comfortable, still has generalized weakness and unstable gait. PHYSICAL EXAMINATION: VITAL SIGNS: She is afebrile, pulse 73, respirations 18, blood pressure 173/80. LUNGS: Bilateral fair airflow. No rhonchi or crackles. HEART: S1 and S2 audible. ABDOMEN: Soft and nontender. No rebound. No guarding. NEUROLOGIC: She is awake, alert and oriented. Communicative. Ambulates with minimal help. LABORATORY DATA: WBC is 4.4, hemoglobin 12.8, hematocrit 39.3, platelet 163. Chemistry: Sodium 144, potassium 4.8, chloride 107, CO2 of 32, BUN 26, creatinine 1.1. Blood sugar of 124. ASSESSMENT: 1. Status post near syncope and status post multiple fall. 2. Hypertension. 3. Hyperlipidemia. 4. Deconditioning and difficulty walking. 5. Acute on chronic vertigo. PLAN: I will continue the patient on current medication. She is scheduled to be transferred to [facility]. Kami Montague MD
--- NOTE | 2017-04-15 15:26 | PN ---
DATE: 04/15/2017 SUBJECTIVE: The patient is seen sitting in chair. She is awake. She is alert. She is comfortable. She still has some dizziness, she reports. She denies any headaches, lightheadedness. She complains of weakness in her lower extremities. PHYSICAL EXAMINATION: GENERAL: Elderly lady, sitting in chair. VITAL SIGNS: Blood pressure 173/80?, heart rate 73, respiratory rate 18, temperature 97.7. HEENT: Normocephalic, atraumatic. NECK: Supple, no JVD. LUNGS: Bilateral equal air entry, no rales. CARDIAC: S1, S2, regular rate and rhythm, no murmur, no rub. ABDOMEN: Obese, distended, soft, nontender, bowel sounds present. EXTREMITIES: No lower extremity edema. INTAKE AND OUTPUT: 1280/not charted. LABORATORY DATA: WBC 4.4, hemoglobin 12.8, hematocrit 39, platelets 163. Sodium 144, potassium 4.8, chloride 107, CO2 32, BUN 26, creatinine 1.1, glucose 111, calcium 9.2, phosphorus 3.5 magnesium 2.1, albumin 3.3. CURRENT MEDICATIONS: Meclizine, aspirin, Colace, Lipitor, Synthroid. ASSESSMENT:. 1. Status post episode of vertigo/dizziness. ?Labyrinthitis. 2. Hypertension. 3. Oeq-bftnqbh-xfvogqbsr diabetes mellitus. 4. Hyperlipidemia. 5. Osteopenia. PLAN: 1. Physical therapy. 2. Continue antihypertensives. 3. Continue Antivert. 4. The patient is not orthostatic. Indu Holt MD
[2017-04-16] MEDS: Levothyroxine 112 MCG TAB PO SCH (06:10)
[2017-04-16 08:27] VITALS: BP 142/74; PULSE 67; RESP 18; TEMP 97.9; O2SAT 95
[2017-04-16] MEDS: AMLODIPINE PO SCH (10:38)
[2017-04-16] MEDS: CEREFOLIN PO SCH (10:38)
[2017-04-16] MEDS: VALSARTAN PO SCH (10:38)
--- NOTE | 2017-04-16 13:43 | DS ---
HISTORY OF PRESENT ILLNESS: The patient is 81 years old, seen and examined, sitting in chair, seems to be comfortable. No nausea. No vomiting. No diarrhea. Eating and tolerating. Still has unstable gait. Awaiting to be transferred to TCU. PHYSICAL EXAMINATION: VITAL SIGNS: She is afebrile. Pulse 67, .respirations 18 and blood pressure 142/74. LUNGS: Bilateral fair airflow. No rhonchi or crackle. HEART: S1 and S2 audible. ABDOMEN: Soft and nontender. No rebound. No guarding. NEUROLOGIC: The patient is awake, alert, oriented and communicative. LABORATORY DATA: WBC is 4.4, hemoglobin 12.8, hematocrit 39.3 and platelets 163. Chemistry; blood sugar is 128. ASSESSMENT: 1. Status post near syncope. 2. Status post fall. 3. Hypertension. 4. Hyperlipidemia. 5. Deconditioning and difficulty walking. 6. Chronic vertigo. PLAN: The patient will be transferred to TCU where she will receive physical therapy. I will follow up the patient. Kami Montague MD
--- NOTE | 2017-04-16 20:31 | PN ---
DATE: 04/16/2017 SUBJECTIVE: The patient is seen sitting in bed. She is awake. She is alert. She is comfortable. She denies any headaches. She denies any chest tightness. She reports some light headedness when she was walking. She denies dizziness? PHYSICAL EXAMINATION: GENERAL: Elderly lady sitting in bed. VITAL SIGNS: Blood pressure 142/74, heart rate 67, respiratory rate 18, temperature 97.9. HEENT: Normocephalic, atraumatic. NECK: Supple, no JVD. LUNGS: Bilateral equal entry, no rales. EXTREMITIES: No lower extremity edema. LABORATORY DATA: WBC 4.4, hemoglobin 12.8, hematocrit 39 and platelets 163. No labs today. CURRENT MEDICATIONS: Antivert, aspirin, Colace, Lipitor, Synthroid, and Exforge 5/160, . ASSESSMENT: 1. Dizziness, labyrinthitis/vertigo. 2. Hypertension, well controlled. 3. See-pwbtpcu-rrcqjuxdv diabetes mellitus. 4. Hyperlipidemia. 5. No evidence of orthostasis. PLAN: 1. Continue current antihypertensives. 2. Physical therapy. 3. Agree with plan for TCU. 4. Continue antibiotics. Indu Holt MD
== END 2017-04-16 15:40 | DRG 149 ==
LOC: ED 07:23 → ERH 10:46 → 2RNO 12:49 → OBSVTOIN 04-13 10:10 → 5RNO 04-13 18:57
PROVIDERS: ADMIT Internal Medicine; ATTEND Internal Medicine
DX: H83.09 Labyrinthitis, unspecified ear (principal); E11.9 Type 2 diabetes mellitus without complications; I65.23 Occlusion and stenosis of bilateral carotid arteries; E86.0 Dehydration; I73.9 Peripheral vascular disease, unspecified; I10 Essential (primary) hypertension; R26.2 Difficulty in walking, not elsewhere classified; E78.00 Pure hypercholesterolemia, unspecified; E03.9 Hypothyroidism, unspecified; M85.80 Other specified disorders of bone density and structure, unspecified site; Z86.73 Personal history of transient ischemic attack (TIA), and cerebral infarction without residual deficits; Z86.010 Personal history of colon polyps; Z90.710 Acquired absence of both cervix and uterus

== ENCOUNTER 2017-05-20 11:28 | Emergency (ER) | payer MEDICARE, BC ==
[2017-05-20 11:28] VITALS: BMI 28.3
[2017-05-20] MEDS ORDERED: TDAP Vaccine 0.5 mL Syr IM ONE (12:02)
--- NOTE | 2017-05-20 12:52 | CT ---
PROCEDURE: CT HEAD WITHOUT CONTRAST. HISTORY: fall COMPARISON: 04/11/2017 TECHNIQUE: Axial computed tomography images were obtained through the head/brain without intravenous contrast. Radiation dose: Total exam DLP = 770 mGy-cm. This CT exam was performed using one or more of the following dose reduction techniques: Automated exposure control, adjustment of the mA and/or kV according to patient size, and/or use of iterative reconstruction technique. FINDINGS: HEMORRHAGE: No intracranial hemorrhage. BRAIN: No mass effect or edema. Severe chronic microvascular changes are seen in the periventricular white matter. VENTRICLES: Unremarkable. No hydrocephalus. CALVARIUM: Unremarkable. PARANASAL SINUSES: Unremarkable as visualized. No significant inflammatory changes. MASTOID AIR CELLS: Unremarkable as visualized. No inflammatory changes. OTHER FINDINGS: There is a small amount of air in the subcutaneous scalp of the right frontal region IMPRESSION: No acute intracranial findings
--- NOTE | 2017-05-20 13:01 | CT ---
PROCEDURE: CT ORBITS WITHOUT CONTRAST. HISTORY: fall COMPARISON: None available. TECHNIQUE: Axial CT images of the orbits were obtained. Coronal and sagittal reformats were generated. Radiation dose: Total exam DLP = 711 mGy-cm. This CT exam was performed using one or more of the following dose reduction techniques: Automated exposure control, adjustment of the mA and/or kV according to patient size, and/or use of iterative reconstruction technique. FINDINGS: RIGHT ORBIT: RIGHT BONY ORBIT: Normal. RIGHT INTRAORBITAL STRUCTURES: Globe: Normal. Extraocular muscles: Normal. Post septal space: Normal. Optic Nerve: Normal. Lacrimal Apparatus: Normal. RIGHT PRESEPTAL SOFT TISSUES: Normal. LEFT ORBIT: LEFT BONY ORBIT: Normal. LEFT INTRAORBITAL STRUCTURES: Globe: Normal. Extraocular muscles: Normal. Post septal space: Normal Optic Nerve: Normal. . Lacrimal Apparatus: Normal. LEFT PRESEPTAL SOFT TISSUES: Normal. OTHER: There is a small amount of air in the subcutaneous tissues of the scalp over the right frontal region. This is probably due to laceration. There is no evidence of fracture through the sinuses. IMPRESSION: There is a small amount of air in the subcutaneous tissues of the scalp over the right frontal region. This is probably due to laceration. There is no evidence of fracture through the sinuses. No evidence of fracture
--- NOTE | 2017-05-20 13:29 | ED PDOC ---
Arrival/HPI <James Keith - Last Filed: 05/20/17 15:21> - General Historian: Patient - History of Present Illness Time/Duration: Prior to Arrival Context: Tripped <Gregoria Valencia - Last Filed: 05/20/17 23:10> - General Chief Complaint: Trauma Time Seen by Provider: 05/20/17 12:01 - History of Present Illness Narrative History of Present Illness (Text): 05/20/17 13:17 A 81 year old female, whose past medical history includes hypertension, TIA, and diabetes as documented on prior charts, presents to the emergency department for evaluation after mechanical fall prior to arrival. Patient reports this morning she left her home carrying a bag in each hand plus her cane. She states while walking on the sidewalk she tripped and fell to the ground with point of impact to her right supraorbital rim. Patient complains of a mild headache, and abrasions to right supraorbital rim, forehead and right knee. Patient denies any other injuries, loss of consciousness, focal neurological deficits, dizziness, vision changes, neck pain, fever, chills, nausea, vomiting, abdominal pain, back pain, chest pain, palpitations, shortness of breath or any other complaints. Patient reports she has been in her usual state of health for the past several days. (Gregoria Valencia) Past Medical History - Provider Review Nursing Documentation Reviewed: Yes - Infectious Disease Hx of Infectious Diseases: None - Tetanus Immunization Tetanus Immunization: Unknown - Cardiac Hx Hypertension: Yes - Pulmonary Hx Respiratory Disorders: No - Neurological HX Cerebrovascular Accident: Yes (multiple TIA's) - HEENT Hx HEENT Disorder: Yes (sx for deviated septum and tonsils) - Renal Hx Renal Disorder: No Other/Comment: #rd Kidney - Endocrine/Metabolic Hx Diabetes Mellitus Type 2: Yes Hx Hypothyroidism: Yes - Hematological/Oncological Hx Blood Disorders: No - Integumentary Hx Dermatological Disorder: Yes Hx Basal Cell Carcinoma: Yes - Musculoskeletal/Rheumatological Hx Falls: Yes - Gastrointestinal Hx Gastrointestinal Disorders: Yes (colon polyps removed 2 yrs ago) - Genitourinary/Gynecological Hx Genitourinary Disorders: No - Psychiatric Hx Emotional Abuse: No Hx Physical Abuse: No Hx Substance Use: No - Surgical History Hx Hysterectomy: Yes - Anesthesia Hx Anesthesia Reactions: Yes Hx Malignant Hyperthermia: No - Suicidal Assessment Feels Threatened In Home Enviroment: No <Gregoria Valencia - Last Filed: 05/20/17 23:10> Family/Social History - Physician Review Nursing Documentation Reviewed: Yes Family/Social History: Unknown Family HX Smoking Status: Never Smoked Hx Alcohol Use: No Hx Substance Use: No Hx Substance Use Treatment: No <Gregoria Valencia - Last Filed: 05/20/17 23:10> Allergies/Home Meds <SagarJames Padilla - Last Filed: 05/20/17 15:21> <Gregoria Valencia - Last Filed: 05/20/17 23:10> Allergies/Adverse Reactions: Allergies No Known Allergies Allergy (Verified 05/20/17 11:43) Home Medications: Home Meds Medication Instructions Recorded Confirmed Amlodipine/Valsartan 1 tab PO DAILY 04/11/17 04/16/17 [Amlodipine-Valsartan 5-160 mg] Carbidopa/Levodopa 25/100 mg 0.5 tab PO BID 04/11/17 04/16/17 [Sinemet] Furosemide [Lasix] 40 mg PO DAILY PRN 04/11/17 04/16/17 Levothyroxine [Synthroid] 112 mcg PO DAILY 04/11/17 04/16/17 Olopatadine 0.1% Opht [Patanol 5 ml OD DAILY 04/11/17 04/16/17 0.1% Opht Soln] Rosuvastatin Calcium [Crestor] 5 mg PO DAILY 04/11/17 04/16/17 Tobramycin/Dexamethasone [Tobradex 5 ml OD TID 04/11/17 04/16/17 St Eye Drops] Review of Systems - Physician Review All systems were reviewed & negative as marked: Yes - Review of Systems Constitutional: absent: Fevers, Night Sweats Eyes: absent: Vision Changes Respiratory: absent: SOB Cardiovascular: absent: Chest Pain, Palpitations Gastrointestinal: absent: Abdominal Pain, Nausea, Vomiting Musculoskeletal: absent: Back Pain, Neck Pain Skin: Other (Abrasions to right supraorbital rim, forehead and right knee) Neurological: Headache. absent: Dizziness, Focal Weakness <Gregoria Valencia - Last Filed: 05/20/17 23:10> Physical Exam Vital Signs Reviewed: Yes Temperature: Afebrile Blood Pressure: Normal Pulse: Tachycardic Respiratory Rate: Normal Appearance: Positive for: Well-Appearing, Non-Toxic, Comfortable Pain Distress: None Mental Status: Positive for: Alert and Oriented X 3 - Systems Exam Head: Present: Abrasion, Laceration (2.5 cm laceration above right supraorbital rim with mild hematoma, full thickness. 2-3 cm superficial laceration to forehead.) Pupils: Present: PERRL Extroacular Muscles: Present: EOMI Conjunctiva: Present: Normal Mouth: Present: Moist Mucous Membranes Neck: Present: Normal Range of Motion. No: MIDLINE TENDERNESS, Paraspinal Tenderness Respiratory/Chest: Present: Clear to Auscultation, Good Air Exchange. No: Respiratory Distress, Accessory Muscle Use Cardiovascular: Present: Regular Rate and Rhythm, Normal S1, S2. No: Murmurs Abdomen: Present: Normal Bowel Sounds. No: Tenderness, Distention, Peritoneal Signs Back: Present: Normal Inspection. No: Midline Tenderness, Paraspinal Tenderness Upper Extremity: Present: Normal Inspection, Normal ROM, NORMAL PULSES. No: Cyanosis, Edema Lower Extremity: Present: NORMAL PULSES, Normal ROM, Other (Abrasions to right knee). No: Edema, CALF TENDERNESS, Tenderness, Swelling, Deformity, Temperature Abnormalties, Neurovascularly Intact Neurological: Present: GCS=15, CN II-XII Intact, Speech Normal, Motor Func Grossly Intact, Normal Sensory Function, Normal Cerebellar Funct Skin: Present: Warm, Dry, Normal Color. No: Rashes Psychiatric: Present: Alert, Oriented x 3, Normal Insight, Normal Concentration <Gregoria Valencia - Last Filed: 05/20/17 23:10> Vital Signs Temp Pulse Resp BP Pulse Ox 05/20/17 15:53 98.5 F 78 128/79 95 05/20/17 13:00 98.2 F 86 16 132/76 97 05/20/17 11:37 97.6 F 98 H 18 134/78 99 Medical Decision Making <James Keith A - Last Filed: 05/20/17 15:21> <Gregoria Valencia - Last Filed: 05/20/17 23:10> ED Course and Treatment: 05/20/17 13:17 Impression: A 81 year old female presents for evaluation after mechanical fall. Patient complains of a headache and abrasions to right supraorbital rim, forehead and right knee. Plan: -- Head CT -- Orbits/Facials CT -- Chest xray -- Pelvis xray -- Right knee xray -- Tylenol and Boostrix vaccine -- Reassess and disposition Progress Notes: Report Date : 05/20/2017 12:50:58 PROCEDURE: CT HEAD WITHOUT CONTRAST. Dictator : Poli Hoyos MD IMPRESSION: No acute intracranial findings Report Date : 05/20/2017 12:59:51 PROCEDURE: CT ORBITS WITHOUT CONTRAST. Dictator : Poli Hoyos MD IMPRESSION: There is a small amount of air in the subcutaneous tissues of the scalp over the right frontal region. This is probably due to laceration. There is no evidence of fracture through the sinuses. No evidence of fracture Report Date : 05/20/2017 13:50:26 PROCEDURE: Right Knee Radiographs. Dictator : Anna Cid IMPRESSION: No fracture or dislocation. Senescent changes Report Date : 05/20/2017 13:53:11 PROCEDURE: Radiographs of the pelvis. Dictator : Anna Cid IMPRESSION: No fracture dislocation. Bilateral hip osteoarthrosis left greater than right. If further evaluation is clinically indicated consider MRI of the hips/pelvis Report Date : 05/20/2017 13:55:45 Procedure: Chest xray Dictator : Anna Cid IMPRESSION: No interval acute cardiopulmonary pathology noted (Gregoria Valencia) - RAD Interpretation Radiology Orders: 05/20/17 12:01 HEAD W/O CONTRAST [CT] Stat 05/20/17 12:26 ORBITS/ FACIALS W/O CONTRAST [CT] Stat 05/20/17 12:27 KNEE RIGHT 2 VIEWS (AP & LAT) [RAD] Stat PELVIS ONE VIEW [RAD] Stat 05/20/17 12:28 CHEST TWO VIEWS (PA/LAT) [RAD] Stat - Medication Orders Current Medication Orders: Discontinued Medications Acetaminophen (Tylenol 325mg Tab) 650 mg PO STAT STA Stop: 05/20/17 12:03 Last Admin: 05/20/17 12:32 Dose: 650 mg Tetanus/Reduced Diphtheria/Acell Pertussis (Boostrix Vaccine Inj) 0.5 ml IM .ONCE ONE Stop: 05/20/17 12:03 Last Admin: 05/20/17 12:32 Dose: 0.5 ml Immunization Registry Document 05/20/17 12:32 KKL (Rec: 05/20/17 12:32 KK [id number]) Immunization Registry Consent Date 05/20/17 <James Keith - Last Filed: 05/20/17 15:21> - Scribe Statement The provider has reviewed the documentation as recorded by the Scribe <Gregoria Valencia - Last Filed: 05/20/17 23:10> - Scribe Statement Jessica Bledsoe Provider Scribe Attestation: All medical record entries made by the Scribe were at my direction and personally dictated by me. I have reviewed the chart and agree that the record accurately reflects my personal performance of the history, physical exam, medical decision making, and the department course for this patient. I have also personally directed, reviewed, and agree with the discharge instructions and disposition. (Gregoria Valencia) Disposition/Present on Arrival - Present on Arrival Any Indicators Present on Arrival: No History of DVT/PE: No History of Uncontrolled Diabetes: No Urinary Catheter: No History of Decub. Ulcer: No History Surgical Site Infection Following: None - Disposition Have Diagnosis and Disposition been Completed?: Yes Disposition Time: 15:25 Patient Plan: Discharge <James Keith Valerie - Last Filed: 05/20/17 15:21> - Present on Arrival Any Indicators Present on Arrival: No History of DVT/PE: No History of Uncontrolled Diabetes: No Urinary Catheter: No History of Decub. Ulcer: No History Surgical Site Infection Following: None - Disposition Have Diagnosis and Disposition been Completed?: Yes Patient Plan: Discharge <Gregoria Valencia - Last Filed: 05/20/17 23:10> - Disposition Diagnosis: Laceration, Head trauma Disposition: HOME/ ROUTINE Condition: STABLE Discharge Instructions (ExitCare): Facial Laceration (ED) Additional Instructions: Keep wound clean and dry Follow up with your Doctor in 6days for suture removal Return to ED or any fever. discharge, redness to area Referrals: Kami Montague MD [Primary Care Provider] - Follow up with primary Forms: MedTest DX (Sami)
--- NOTE | 2017-05-20 13:52 | RAD ---
PROCEDURE: Right Knee Radiographs. HISTORY: fall COMPARISON: None. FINDINGS: BONES: Small subchondral cystic changes in the medial femoral tibial compartment are noted. No fracture. JOINTS: Mild medial femoral tibial and patellofemoral osteoarthritis. JOINT EFFUSION: No significant appearing suprapatellar joint effusion. OTHER FINDINGS: Constricting stocking inferred per soft tissue transition level - lower leg. Anterior superior patellar cortical hyperostoses Atherosclerotic vascular calcifications IMPRESSION: No fracture or dislocation. . Senescent changes
--- NOTE | 2017-05-20 13:54 | RAD ---
PROCEDURE: Radiographs of the pelvis. HISTORY: fall COMPARISON: None. FINDINGS: BONES: Pelvic Bones: Unremarkable. Hips: Bilateral osteoarthrosis -left greater than right JOINTS: Sacroiliac Joints: Mild right sclerotic arthrosis Pubic Symphysis: Unremarkable. OTHER FINDINGS: Inferior lumbar marginal osteophytosis, facet hypertrophy, intervertebral disc space narrowing with vacuum disc phenomena and diffuse subchondral sclerosis. Left hemipelvic clip. Bilateral hemipelvic calcifications probably vascular and left hemipelvic phleboliths. Hypertrophic changes right greater trochanter IMPRESSION: No fracture dislocation. Bilateral hip osteoarthrosis left greater than right . If further evaluation is clinically indicated consider MRI of the hips/pelvis
--- NOTE | 2017-05-20 13:57 | RAD ---
HISTORY: rout med exam COMPARISON: 04/11/2017 TECHNIQUE: Chest PA and lateral FINDINGS: LUNGS: No active pulmonary disease. Trace scarring inter disc or atelectasis lateral right upper lung zone no change PLEURA: No significant pleural effusion identified. No pneumothorax apparent. Left apical pleural thickening is possible -no significant change here is believe present CARDIOVASCULAR: Top-normal heart size no central pulmonary venous congestion OSSEOUS STRUCTURES: Rightward thoracic convexity and mild thoracic spondylosis VISUALIZED UPPER ABDOMEN: Normal. OTHER FINDINGS: None. IMPRESSION: No interval acute cardiopulmonary pathology noted
[2017-05-20 15:52] VITALS: RESP 16
[2017-05-20 15:55] VITALS: BP 128/79; PULSE 78; TEMP 98.5; O2SAT 95
== END 2017-05-20 15:55 | disposition home or self-care (01) ==
LOC: ED 11:28
DX: S01.81XA Laceration without foreign body of other part of head, initial encounter (principal); W01.0XXA Fall on same level from slipping, tripping and stumbling without subsequent striking against object, initial encounter; Y92.480 Sidewalk as the place of occurrence of the external cause; Z23 Encounter for immunization; I10 Essential (primary) hypertension; E11.9 Type 2 diabetes mellitus without complications; E03.9 Hypothyroidism, unspecified; Z86.73 Personal history of transient ischemic attack (TIA), and cerebral infarction without residual deficits

== ENCOUNTER 2017-05-27 17:19 | Emergency (ER) | payer MEDICARE, BC ==
[2017-05-27 17:20] VITALS: BMI 28.3
[2017-05-27 17:33] VITALS: BP 135/77; PULSE 86; RESP 17; TEMP 98.1; O2SAT 99
--- NOTE | 2017-05-27 17:45 | ED PDOC ---
Arrival/HPI - General Chief Complaint: Suture/Staple Removal Time Seen by Provider: 05/27/17 17:21 Historian: Patient - History of Present Illness Narrative History of Present Illness (Text): 05/27/17 17:43 81yr old female presents today for suture removal from right side of forehead. pt states she had head injury on 05/20. no fever/chills. denies headaches or dizziness. denies pain. no other complaints. Past Medical History - Provider Review Nursing Documentation Reviewed: Yes - Travel History Have you recently traveled outside [place] w/in the past 3 mons?: No - Infectious Disease Hx of Infectious Diseases: None - Cardiac Hx Hypertension: Yes - Pulmonary Hx Respiratory Disorders: No - Neurological HX Cerebrovascular Accident: Yes (multiple TIA's) - HEENT Hx HEENT Disorder: Yes (sx for deviated septum and tonsils) - Renal Hx Renal Disorder: No Other/Comment: #rd Kidney - Endocrine/Metabolic Hx Diabetes Mellitus Type 2: Yes Hx Hypothyroidism: Yes - Hematological/Oncological Hx Blood Disorders: No - Integumentary Hx Dermatological Disorder: Yes Hx Basal Cell Carcinoma: Yes - Musculoskeletal/Rheumatological Hx Falls: Yes - Gastrointestinal Hx Gastrointestinal Disorders: Yes (colon polyps removed 2 yrs ago) - Genitourinary/Gynecological Hx Genitourinary Disorders: No - Psychiatric Hx Emotional Abuse: No Hx Physical Abuse: No Hx Substance Use: No - Surgical History Hx Hysterectomy: Yes - Anesthesia Hx Anesthesia: Yes Hx Anesthesia Reactions: Yes Hx Malignant Hyperthermia: No - Suicidal Assessment Feels Threatened In Home Enviroment: No Family/Social History - Physician Review Nursing Documentation Reviewed: Yes Family/Social History: Unknown Family HX Smoking Status: Never Smoked Hx Alcohol Use: No Hx Substance Use: No Hx Substance Use Treatment: No Allergies/Home Meds Allergies/Adverse Reactions: Allergies No Known Allergies Allergy (Verified 05/27/17 17:30) Home Medications: Home Meds Medication Instructions Recorded Confirmed Amlodipine/Valsartan 1 tab PO DAILY 04/11/17 05/27/17 [Amlodipine-Valsartan 5-160 mg] Carbidopa/Levodopa 25/100 mg 0.5 tab PO BID 04/11/17 05/27/17 [Sinemet] Furosemide [Lasix] 40 mg PO DAILY PRN 04/11/17 05/27/17 Levothyroxine [Synthroid] 112 mcg PO DAILY 04/11/17 05/27/17 Olopatadine 0.1% Opht [Patanol 5 ml OD DAILY 04/11/17 05/27/17 0.1% Opht Soln] Rosuvastatin Calcium [Crestor] 5 mg PO DAILY 04/11/17 05/27/17 Tobramycin/Dexamethasone [Tobradex 5 ml OD TID 04/11/17 05/27/17 St Eye Drops] Review of Systems - Review of Systems Constitutional: absent: Fatigue, Fevers Eyes: absent: Vision Changes, Photophobia, Eye Pain Respiratory: absent: SOB, Cough Cardiovascular: absent: Chest Pain, Palpitations Gastrointestinal: absent: Abdominal Pain, Nausea, Vomiting Musculoskeletal: absent: Back Pain, Neck Pain Skin: Laceration Neurological: absent: Headache, Dizziness Physical Exam Vital Signs Reviewed: Yes Vital Signs Temp Pulse Resp BP Pulse Ox 05/27/17 17:33 98.1 F 86 17 135/77 99 Temperature: Afebrile Blood Pressure: Normal Pulse: Regular Respiratory Rate: Normal Appearance: Positive for: Well-Appearing, Non-Toxic, Comfortable Pain Distress: None Mental Status: Positive for: Alert and Oriented X 3 - Systems Exam Head: Present: Ecchymosis, Laceration ([address] along right side of forehead; no edema, no erythema; no purulent discharge; non tender: + ecchymosis. ). No: Tenderness, Swelling Pupils: Present: PERRL Extroacular Muscles: Present: EOMI Mouth: Present: Moist Mucous Membranes Neck: Present: Normal Range of Motion Respiratory/Chest: Present: Clear to Auscultation, Good Air Exchange. No: Respiratory Distress, Accessory Muscle Use Cardiovascular: Present: Regular Rate and Rhythm, Normal S1, S2. No: Murmurs Back: Present: Normal Inspection Upper Extremity: Present: Normal ROM Lower Extremity: Present: Normal ROM Neurological: Present: GCS=15 Skin: Present: Warm, Dry, Normal Color Psychiatric: Present: Alert, Oriented x 3 Medical Decision Making ED Course and Treatment: 05/27/17 18:02 Patient is nontoxic well-appearing in no distress. Vital signs are stable. suture removal: 3sutures removed Wound healing well without signs of infection I advised the patient to keep the wound clean and dry apply bacitracin twice daily and return if symptoms worsen persist or if new symptoms develop. Patient verbalizes understanding of discharge instructions and need for immediate followup. all aspects of this case were discussed the attending of record. Impression: Wound check, suture removal Keep the wound clean and dry Apply bacitracin twice daily Follow up with primary care physician within the next 2 days Return immediately if symptoms worsen persist or if new symptoms develop Disposition/Present on Arrival - Present on Arrival Any Indicators Present on Arrival: No History of DVT/PE: No History of Uncontrolled Diabetes: No Urinary Catheter: No History of Decub. Ulcer: No History Surgical Site Infection Following: None - Disposition Have Diagnosis and Disposition been Completed?: Yes Diagnosis: Visit for suture removal Disposition: HOME/ ROUTINE Disposition Time: 17:49 Patient Plan: Discharge Condition: GOOD Discharge Instructions (ExitCare): Laceration (ED) Additional Instructions: keep wound clean and dry apply bacitracin twice daily Follow up with the primary care physician within the next 2 days. return if symptoms worsen,persist or if new symptoms develop. Referrals: Kami Montague MD [Primary Care Provider] - Follow up with primary Forms: GI Track (Romanian)
== END 2017-05-27 17:50 | disposition home or self-care (01) ==
LOC: ED 17:19
DX: Z48.02 Encounter for removal of sutures (principal)

== ENCOUNTER 2017-08-05 07:17 | Day surgery (SDC) | payer MEDICARE, BC ==
[2017-08-05] MEDS ORDERED: Propofol 10 mg/ml Inj (20 ML) ONE ×2 (08:58→09:17)
[2017-08-05] MEDS ORDERED: Sodium Chloride 0.9% 1,000 ML IV SCH (09:45)
[2017-08-05 10:24] VITALS: BP 141/69; PULSE 67; RESP 18; TEMP 97.6; O2SAT 99
== END 2017-08-05 10:52 | disposition home or self-care (01) ==
LOC: ENDO 07:17
PROVIDERS: ATTEND Specialist
DX: K57.30 Diverticulosis of large intestine without perforation or abscess without bleeding (principal); K63.89 Other specified diseases of intestine; I10 Essential (primary) hypertension; E11.9 Type 2 diabetes mellitus without complications; E03.9 Hypothyroidism, unspecified; I47.1 Supraventricular tachycardia; R32 Unspecified urinary incontinence; Z90.710 Acquired absence of both cervix and uterus; Z86.010 Personal history of colon polyps
CPT/HCPCS: 45378; 82948; J2704; J7040

== ENCOUNTER 2018-03-08 14:50 | Observation (INO) | payer MEDICARE, BC ==
[2018-03-08 14:53] VITALS: BMI 29.0
--- NOTE | 2018-03-08 15:14 | ED PDOC ---
Arrival/HPI - General Chief Complaint: Weakness/Neurological Deficit Time Seen by Provider: 03/08/18 14:57 Historian: Patient - History of Present Illness Narrative History of Present Illness (Text): 03/08/18 15:09 82 year old female, with past medical history of hypertension, hyperlipidemia and TIAs, presents to the emergency department for evaluation of a transient episode of left arm numbness which lasted for 10 minutes approximately 12pm this afternoon. Patient states she called her outpatient neurologist for the presented symptom, and was referred subsequently to the emergency department for medical evaluation. Patient currently informs completely resolved symptoms and denies any somatic complaints. Patient denies any focal weakness, slurred speech, numbness/tingling or any visual changes. Patient denies any fever, chills, nausea, vomiting, diarrhea, abdominal pain, chest pain, shortness of breath, cough, headache, neck pain, back pain or any other complaints. 03/08/18 17:45 Time/Duration: Prior to Arrival Symptom Onset: Gradual Symptom Course: Resolved Activities at Onset: Light Context: Home Past Medical History - Provider Review Nursing Documentation Reviewed: Yes - Infectious Disease Hx of Infectious Diseases: None - Tetanus Immunization Tetanus Immunization: Unknown - Cardiac Hx Hypertension: Yes Hx Pacemaker: No - Pulmonary Hx Respiratory Disorders: No - Neurological Hx Paralysis: No Hx Transient Ischemic Attacks (TIA): Yes - HEENT Hx HEENT Disorder: Yes (sx for deviated septum and tonsils) - Renal Hx Renal Disorder: No Other/Comment: #rd Kidney - Endocrine/Metabolic Hx Diabetes Mellitus Type 2: Yes Hx Hypothyroidism: Yes - Hematological/Oncological Hx Blood Transfusions: No Hx Blood Transfusion Reaction: No - Integumentary Hx Dermatological Disorder: Yes Hx Basal Cell Carcinoma: Yes - Musculoskeletal/Rheumatological Hx Musculoskeletal Disorders: No - Gastrointestinal Hx Gastrointestinal Disorders: Yes (colon polyps removed 2 yrs ago) - Genitourinary/Gynecological Hx Genitourinary Disorders: No - Psychiatric Hx Emotional Abuse: No Hx Physical Abuse: No Hx Substance Use: No - Surgical History Hx Hysterectomy: Yes - Anesthesia Hx Anesthesia Reactions: Yes Hx Malignant Hyperthermia: No - Suicidal Assessment Feels Threatened In Home Enviroment: No Family/Social History - Physician Review Nursing Documentation Reviewed: Yes Family/Social History: Unknown Family HX Smoking Status: Never Smoked Hx Alcohol Use: No Hx Substance Use: No Hx Substance Use Treatment: No Allergies/Home Meds Allergies/Adverse Reactions: Allergies No Known Allergies Allergy (Verified 05/27/17 17:30) Home Medications: Home Meds Medication Instructions Recorded Confirmed Amlodipine/Valsartan 1 tab PO DAILY 04/11/17 08/05/17 [Amlodipine-Valsartan 5-160 mg] Carbidopa/Levodopa 25/100 mg 0.5 tab PO BID 04/11/17 08/05/17 [Sinemet] Levothyroxine [Synthroid] 112 mcg PO DAILY 04/11/17 08/05/17 Olopatadine 0.1% Opht [Patanol 5 ml OD DAILY PRN 04/11/17 08/05/17 0.1% Opht Soln] Rosuvastatin Calcium [Crestor] 5 mg PO DAILY 04/11/17 07/27/17 Tobramycin/Dexamethasone [Tobradex 5 ml OD TID PRN 04/11/17 08/05/17 St Eye Drops] Cinnamon Bark [Cinnamon] 1 tab PO DAILY 07/27/17 08/05/17 Fiber-Tabs 1 tab PO BID 07/27/17 08/05/17 [place]ondon-3 Fatty Acids/Fish Oil [Fish 1 tab PO DAILY 07/27/17 08/05/17 Oil 1,000 mg Capsule] Polyethylene Glycol 3350 [Miralax] 1 pkt PO BID PRN 07/27/17 08/05/17 Turmeric Root Extract [Turmeric] 1 tab PO DAILY 07/27/17 08/05/17 Vit A/Vit C/Biotin/Zinc/Copper 1 tab PO DAILY 07/27/17 08/05/17 [Hair, Skin and Nails Softgel] Vit B12/Levomefolate/Vit B6/B2 1 tab PO DAILY 07/27/17 08/05/17 [Cerefolin Caplet] Vitamin D3 1 tab PO DAILY 07/27/17 08/05/17 Review of Systems - Physician Review All systems were reviewed & negative as marked: Yes - Review of Systems Constitutional: Normal. absent: Fevers Eyes: Normal ENT: Normal Respiratory: Normal. absent: SOB, Cough Cardiovascular: Normal. absent: Chest Pain Gastrointestinal: Normal. absent: Abdominal Pain, Diarrhea, Nausea, Vomiting Genitourinary Female: Normal Musculoskeletal: Normal. absent: Back Pain, Neck Pain Skin: Normal Neurological: Normal. absent: Headache, Dizziness Endocrine: Normal Hemo/Lymphatic: Normal Psychiatric: Normal Physical Exam Vital Signs Reviewed: Yes Vital Signs Temp Pulse Resp BP Pulse Ox 03/08/18 20:39 97.6 F 78 18 143/74 98 03/08/18 20:03 75 140/63 03/08/18 20:01 140/63 03/08/18 19:00 75 18 139/71 97 03/08/18 17:00 79 18 130/68 99 03/08/18 14:51 97.8 F 86 18 144/79 94 L Temperature: Afebrile Blood Pressure: Normal Pulse: Regular Respiratory Rate: Normal Appearance: Positive for: Well-Appearing, Non-Toxic, Comfortable Pain Distress: None Mental Status: Positive for: Alert and Oriented X 3 - Systems Exam Head: Present: Atraumatic, Normocephalic Pupils: Present: PERRL Extroacular Muscles: Present: EOMI Conjunctiva: Present: Normal Mouth: Present: Moist Mucous Membranes Neck: Present: Normal Range of Motion Respiratory/Chest: Present: Clear to Auscultation, Good Air Exchange. No: Respiratory Distress, Accessory Muscle Use Cardiovascular: Present: Regular Rate and Rhythm, Normal S1, S2. No: Murmurs Abdomen: No: Tenderness, Distention, Peritoneal Signs Back: Present: Normal Inspection Upper Extremity: Present: Normal Inspection. No: Cyanosis, Edema Lower Extremity: Present: Normal Inspection. No: Edema Neurological: Present: GCS=15, CN II-XII Intact, Speech Normal Skin: Present: Warm, Dry, Normal Color. No: Rashes Psychiatric: Present: Alert, Oriented x 3, Normal Insight, Normal Concentration Medical Decision Making ED Course and Treatment: 03/08/18 15:03 Impression: 82 year old female presents to the emergency department complaining of transient episode left arm weakness. Differential Diagnosis included but are not limited to: CVA vs. TIA Plan: -- Labs -- CT of head -- EKG -- CXR -- IV Fluids -- UA -- Reassess and disposition Prior Visits: Notes and results from previous visits were reviewed. Progress Notes: 03/08/18 15:05 CODE STROKE ACTIVATED. 03/08/18 15:05 Discussed case with Todd Jc, who is aware and agrees with emergency department management plan. 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 case discussed with dr jimenez. - Lab Interpretations Lab Results: 03/08/18 15:35 03/08/18 15:35 Lab Results 03/08/18 15:35: Blood Type AB POSITIVE, Antibody Screen Negative, BBK History Checked Patient has bt 03/08/18 15:35: Hemoglobin A1c 6.7 H 03/08/18 15:35: Sodium 142, Potassium 4.5, Chloride 107, Carbon Dioxide 28, Anion Gap 11, BUN 31 H, Creatinine 1.0, Est GFR ( Amer) > 60, Est GFR ( Non-Af Amer) 53, Random Glucose 158 H, Calcium 9.1, Total Bilirubin 0.3, AST 25 , ALT 32, Alkaline Phosphatase 90, Troponin I < 0.01, Total Protein 6.2, Albumin 3.6, Globulin 2.6, Albumin/Globulin Ratio 1.4, Triglycerides 163 H, Cholesterol 120 L, LDL Cholesterol Direct 32, HDL Cholesterol 60 03/08/18 15:35: PT 10.9, INR 0.96, APTT 32.9 03/08/18 15:35: WBC 4.0 L, RBC 3.97, Hgb 11.8 L, Hct 37.1, MCV 93.5, MCH 29.7, MCHC 31.8, RDW 13.2, Plt Count 167, MPV 10.0, Gran % 64.8, Lymph % (Auto) 25.3, [place] % (Auto) 7.3 H, Eos % (Auto) 2.3, Baso % (Auto) 0.3, Gran # 2.59, Lymph # ( Auto) 1.0 L, [place] # (Auto) 0.3, Eos # (Auto) 0.1, Baso # (Auto) 0.01 - RAD Interpretation Radiology Orders: 03/08/18 15:03 HEAD W/O (CODE STROKE) [CT] Stat CHEST PORTABLE [RAD] Stat - Medication Orders Current Medication Orders: Discontinued Medications Amlodipine Besylate (Norvasc) 10 mg PO STAT STA Stop: 03/08/18 19:12 Last Admin: 03/08/18 20:01 Dose: 10 mg MAR Blood Pressure Document 03/08/18 20:01 RG (Rec: 03/08/18 20:03 RG [facility] [id number] Blood Pressure Blood Pressure (100/60-150/90) 140/63 Amlodipine Besylate (Norvasc) 5 mg PO DAILY [facility] Last Admin: 03/09/18 14:20 Dose: 5 mg MAR Pulse and Blood Pressure Document 03/09/18 14:20 KAA (Rec: 03/09/18 14:20 KAA [id number]) Pulse Pulse Rate (60-90) 90 Blood Pressure Blood Pressure (100/60-150/90) 126/79 Aspirin (Aspirin) 325 mg PO DAILY [facility] Last Admin: 03/09/18 09:24 Dose: 325 mg Atorvastatin Calcium (Lipitor) 20 mg PO DIN [facility] Carbidopa/Levodopa (Sinemet) 0.5 tab PO BID [facility] Last Admin: 03/09/18 09:24 Dose: 0.5 tab Clopidogrel Bisulfate (Plavix) 300 mg PO STAT STA Stop: 03/08/18 16:44 Last Admin: 03/08/18 18:00 Dose: 300 mg Sodium Chloride (Sodium Chloride 0.9%) 1,000 mls @ 100 mls/hr IV .Q10H [facility] Last Admin: 03/09/18 01:33 Dose: 100 mls/hr eMAR Start Stop Document 03/09/18 01:33 SD (Rec: 03/09/18 01:33 SD [id number]) Intravenous Solution Start Date 03/09/18 Start Time 01:33 Levothyroxine Sodium (Synthroid) 112 mcg PO DAILY [facility] Last Admin: 03/09/18 09:24 Dose: 112 mcg Losartan Potassium (Cozaar) 50 mg PO STAT STA Stop: 03/08/18 19:12 Last Admin: 03/08/18 20:03 Dose: 50 mg MAR Pulse and Blood Pressure Document 03/08/18 20:03 RG (Rec: 03/08/18 20:03 RG [facility] [id number]) Pulse Pulse Rate (60-90) 75 Blood Pressure Blood Pressure (100/60-150/90) 140/63 Losartan Potassium (Cozaar) 100 mg PO DAILY [facility] Last Admin: 03/09/18 14:20 Dose: 100 mg Meclizine HCl (Antivert) 12.5 mg PO TID [facility] Last Admin: 03/09/18 14:20 Dose: 12.5 mg Polyethylene Glycol (Miralax) 17 gm PO BID PRN PRN Reason: Constipation NIHSS Scale ([place]) Time Performed: 15:08 - How Severe is the Stoke Baseline Level of Consciousness: 0=Alert LOC to Questions: 0=Both comments correct LOC to commands: 0=Obeys both correctly Best Gaze: 0=Normal Visual: 0=No visual loss Facial: 0=Normal Motor Arm - Left: 0=No drift Motor Arm - Right: 0=No drift Motor Leg - Left: 0=No drift Motor Leg - Right: 0=No drift Limb Ataxia: 0=Absent Sensory: 0=Normal Best Language: 0=No aphasia Dysarthia: 0=Normal articulation Extinction & Inattention (Neglect): 0=Normal, no object Score: 0 Risk Level: No Stroke Risk rTPA Inclusion/Exclusion - Refusal of Treatment Patient Refused Treatment: No - Inclusion Criteria for Altepase Patient is 18 years or Older: Yes The Clinical Diagnosis of Ischemic Stroke That is Causing a Potentially Disabling Neurological Deficit: No Time of Onset is Well Established to be Less Than 270 Minute Before Treatment Would Begin: Yes Risk/Benefit Discussed With Patient/Family Member Present: No - Scribe Statement The provider has reviewed the documentation as recorded by the Scribe Freeman Bennett. All medical record entries made by the Scribe were at my direction and personally dictated by me. I have reviewed the chart and agree that the record accurately reflects my personal performance of the history, physical exam, medical decision making, and the department course for this patient. I have also personally directed, reviewed, and agree with the discharge instructions and disposition. Disposition/Present on Arrival - Present on Arrival Any Indicators Present on Arrival: No History of DVT/PE: No History of Uncontrolled Diabetes: No Urinary Catheter: No History of Decub. Ulcer: No History Surgical Site Infection Following: None - Disposition Have Diagnosis and Disposition been Completed?: Yes Diagnosis: Arm numbness Disposition: HOSPITALIZED Disposition Time: 02:00 Condition: STABLE
--- NOTE | 2018-03-08 15:20 | CT ---
Date of service: 03/08/2018 PROCEDURE: CT HEAD WITHOUT CONTRAST. HISTORY: Code Stroke COMPARISON: 05/20/2017 TECHNIQUE: Axial computed tomography images were obtained through the head/brain without intravenous contrast. Radiation dose: Total exam DLP = 929 mGy-cm. This CT exam was performed using one or more of the following dose reduction techniques: Automated exposure control, adjustment of the mA and/or kV according to patient size, and/or use of iterative reconstruction technique. FINDINGS: HEMORRHAGE: No intracranial hemorrhage. BRAIN: No mass effect or edema. Severe chronic microvascular changes in the periventricular white matter. VENTRICLES: Unremarkable. No hydrocephalus. CALVARIUM: Unremarkable. PARANASAL SINUSES: Unremarkable as visualized. No significant inflammatory changes. MASTOID AIR CELLS: Unremarkable as visualized. No inflammatory changes. OTHER FINDINGS: None. IMPRESSION: Severe chronic microvascular changes in the periventricular white matter. No acute intracranial findings
--- NOTE | 2018-03-08 15:24 | RAD ---
Date of service: 03/08/2018 HISTORY: Code Stroke COMPARISON: 05/20/2017. FINDINGS: LUNGS: The lungs are well inflated and clear. PLEURA: No significant pleural effusion identified, no pneumothorax apparent. CARDIOVASCULAR: Normal. OSSEOUS STRUCTURES: No significant abnormalities. VISUALIZED UPPER ABDOMEN: Normal. OTHER FINDINGS: None. IMPRESSION: No active pulmonary disease.
[2018-03-08] MEDS: Sodium Chloride 0.9% 1,000 ML IV SCH (16:03)
[2018-03-08 16:25] LABS: BASO # 0.01 K/mm3 (0.0-2.0); BASO % 0.3 % (0.0-3.0); EOS # 0.1 (0.0-0.7); EOS % 2.3 % (1.5-5.0); GRAN # 2.59 (1.4-6.5); GRAN % 64.8 % (50.0-68.0); HEMOGLOBIN 11.8 g/dL (12.0-16.0); LYMPH % 25.3 % (22.0-35.0); MEAN CELL VOLUME 93.5 fl (80.0-105.0); MEAN CORPUSCULAR HEMOGLOBIN 29.7 pg (25.0-35.0); MEAN CORPUSCULAR HGB CONC 31.8 g/dl (31.0-37.0); MONO # 0.3 (0.1-0.6); MONO % 7.3 % (1.0-6.0); RBC 3.97 10^6/uL (3.5-6.1); RED CELL DISTRIBUTION WIDTH 13.2 % (11.5-14.5)
[2018-03-08 16:38] LABS: ALB/GLOB RATIO 1.4 (1.1-1.8); ALBUMIN 3.6 g/dL (3.0-4.8); ALT/SGPT 32 U/L (7-56); AST/SGOT 25 U/L (14-36); BLOOD UREA NITROGEN 31 mg/dL (7-21); CALCIUM 9.1 mg/dL (8.4-10.5); GFR NON-AFRICAN AMERICAN 53; HDL CHOLESTEROL 60 mg/dL (29-60); INR 0.96; PARTIAL THROMBOPLASTIN TIME 32.9 Seconds (25.1-36.5); PROTHROMBIN TIME 10.9 SECONDS (9.4-12.5)
[2018-03-08 16:49] LABS: LDL CHOLESTEROL 32 mg/dL (0-129)
[2018-03-08 16:52] LABS: TROPONIN I < 0.01 ng/mL
[2018-03-08] MEDS ORDERED: POLYETHYLENE GLYCOL 3350 17 GM/Dose PACKET PO PRN (19:09)
[2018-03-08 19:43] LABS: PH,URINE 6.5 (4.7-8.0); URINE BILIRUBIN NEGATIVE (NEGATIVE); URINE BLOOD NEGATIVE (NEGATIVE); URINE GLUCOSE (UA) NEGATIVE (NEGATIVE); URINE LEUKOCYTE ESTERASE TRACE Leu/uL (NEGATIVE); URINE PROTEIN NEGATIVE mg/dL (<30 mg/dL); URINE UROBILINOGEN 0.2 E.U./dL (<1 E.U./dL)
[2018-03-08 19:54] LABS: URINE APPEARANCE CLEAR (CLEAR); URINE COLOR YELLOW (YELLOW)
[2018-03-08 20:32] LABS: URINE EPITHELIAL CELLS 0 - 2 /hpf (0-5); URINE RBC 0 - 2 /hpf (0-2); URINE WBC 0 - 2 /hpf (0-6)
[2018-03-09] MEDS: Sodium Chloride 0.9% 1,000 ML IV SCH (01:33)
--- NOTE | 2018-03-09 05:52 | HP ---
HISTORY OF PRESENT ILLNESS: The patient is 82 years old, well known to me from previous admission, was admitted in 11/2016 with almost similar complaint of feeling week and dizzy, and earlier around noontime she had left arm and left facial numbness that lasted for a few minutes and it was self limiting. She called Dr. Rogers who is her neurologist, who advised her to come to emergency room. By the time she came to ER, her all symptoms have resolved. She denies any numbness. No headache, no dizziness. Has generalized weakness only. No history of fever or chills. No history of nausea or vomiting. No abdominal pain. No headache, no visual disturbance. PAST MEDICAL HISTORY: She has past medical history significant for: 1. Hypertension. 2. History of TIA in the past. 3. Hyperlipidemia. 4. History of hypothyroidism. 5. History of basal cell carcinoma. 6. History of colonic polyp. ALLERGIES: SHE IS NOT ALLERGIC TO ANY MEDICATIONS. MEDICATIONS AT HOME: She is on: 1. Multivitamins. 2. Vitamin D. 3. Cerefolin. 4. Turmeric root extract. 5. Tobramycin. 6. Crestor. 7. MiraLax. 8. Levothyroxine 112 mcg daily. 9. Levodopa/carbidopa. 10. Exforge. 11. Aspirin 325 daily. 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 She denies smoking or drinking alcohol use. PHYSICAL EXAMINATION GENERAL: She is awake, alert, oriented, able to communicate, answers appropriately. VITAL SIGNS: She is afebrile, pulse 79, respirations 18, blood pressure 139/71. LUNGS: Bilateral fair airflow. No rhonchi or crackle. HEART: S1 and S2 audible. ABDOMEN: Soft. Nontender. No rebound. No guarding. NEUROLOGICAL: She is awake, alert, oriented, communicative. LABORATORY EXAM: WBC is 4, hemoglobin 11.8, hematocrit 37.1, platelet 167. PT 10.9. INR 0.96. PTT 32.9. Chemistry: Sodium 142, potassium 4.5, chloride 107, CO2 of 28, BUN 31, creatinine 1, blood sugar of 151. Troponin is negative. LFTs are within normal limits. Triglycerides 163, total cholesterol is 120. ASSESSMENT: 1. Transient ischemic attack with left facial numbness. 2. Hypertension. 3. Hyperlipidemia. 4. Parkinson disease. 5. Hypothyroidism. PLAN: We will resume her usual medications. The patient had MRI done in 03/2017 and it was unremarkable, so is the carotid Doppler. So we will resume usual medications, order for carotid Doppler. Neuro evaluation has been done by the on-call neurologist. Kami Montague MD
[2018-03-09 08:44] VITALS: RESP 20; TEMP 97.6; O2SAT 94
[2018-03-09] MEDS ORDERED: Levothyroxine 112 MCG TAB PO SCH (10:00)
[2018-03-09] MEDS ORDERED: Gadodiamide 287 MG/ML VIAL (15ML) IV ONE (11:41)
--- NOTE | 2018-03-09 13:53 | CON ---
DATE: 03/09/2018 REFERRING PHYSICIAN: Kami Montague MD. REASON FOR CONSULTATION: Evaluation of the patient known to me from outpatient followup for her hypertension who presents with mild elevation of her blood pressure in the setting of a possible recurrent TIA. HISTORY OF PRESENT ILLNESS: The patient is a pleasant 82-year-old white female with a history of hypertension, history of NIDDM, diet controlled, history of hypothyroidism, history of osteopenia. The patient has had TIA presentations in the past. She developed a 10-minute occurrence of mild left-sided arm weakness. The patient did speak to her outpatient neurologist, Dr. Rogers who recommended that she come to the emergency room. The patient came to the emergency room. Code stroke was called. Head CT scan was negative. Her deficits had resolved. She was felt to have another possible TIA. The patient today went for an MRI of her brain and a carotid Doppler study. These results are pending. Her blood pressure control has been acceptable with exception of an elevation of her blood pressure to 158/98 last night. The patient remains on blood pressure medication in the outpatient setting. The patient requests that I see her for evaluation of her hypertension. PAST MEDICAL HISTORY: Significant for that of hypertension, NIDDM, diet controlled, hyperlipidemia, hypothyroidism and osteopenia. MEDICATIONS AT HOME: Include that of Crestor, Cerefolin vitamin supplement, carbidopa/levodopa, Synthroid, Exforge, baby aspirin, fish oil, biotin, cinnamon. ALLERGIES: THE PATIENT HAS NO KNOWN ALLERGIES TO MEDICATION. CURRENT MEDICATIONS: In hospital include that of Antivert, aspirin, Lipitor, MiraLax, Sinemet and Synthroid. The patient had not been restarted back on her blood pressure medication. SOCIAL HISTORY: No history of cigarette smoking. The patient was never a cigarette smoker. No history of alcohol use. The patient drinks tea and coffee. FAMILY HISTORY: Noncontributory and as per old charts. REVIEW OF SYSTEMS: A 10+ systems reviewed with the patient. All negative except for what is noted above. PHYSICAL EXAMINATION: GENERAL: The patient is currently seen lying comfortable in bed on 3R. VITAL SIGNS: Present blood pressure 147/68, temperature 97.6, respiratory rate is 20 with a pulse of 65. HEENT: Shows her to be normocephalic, atraumatic. Conjunctivae are pink. Sclerae are nonicteric. Pupils equal and reactive to light and accommodation. Extraocular muscles are intact. No facial asymmetry. Posterior pharynx is normal. NECK: Supple. No neck vein distention. No lymphadenopathy. No thyromegaly. No bruits. CHEST: Clear to auscultation and percussion. No rales, rhonchi or wheezing. CARDIOVASCULAR: Shows a regular rate and rhythm without murmurs, rubs or gallops. ABDOMEN: Soft. Bowel sounds normal. No rebound, guarding or masses. BACK: No CVAT. No spinal tenderness. EXTREMITIES: Show no lower extremity cyanosis, clubbing or edema. Distal lower extremity pulses are 2+. NEURO: Shows her to be alert, oriented x3. Hand strength is equal 5/5 bilaterally. No focal neurological deficits, either sensory or motor are noted. No tremors. LABORATORY DATA AND IMAGING: Admitting head CT scan showed chronic changes. No acute findings. MRI of the brain and non-invasive carotid study are pending. Labs, CBC, white blood cell count 4, hemoglobin 11.8 with a platelet count of 167,000. Coags normal. Chemistry showed normal electrolytes. BUN 31 with creatinine of 1. Glucose 158, hemoglobin A1c was 6.7%. Calcium is 9.1. Liver enzymes are normal. Albumin is 3.6. Urines are unremarkable. EKG was done shows a normal sinus rhythm. No diarrhea. ASSESSMENT: 1. Mild elevation of blood pressure in a patient with a long history of essential hypertension. The patient should be restarted back on blood pressure medication. Because of the recall of valsartan, the patient will check the origins of where her drug was manufactured. If it was [place], we will switch her over to combination therapy of amlodipine with generic Benicar. In the interim, the patient will continue receiving her usual antihypertensive medications. 2. Possible transient ischemic attacks. The patient has had a similar presentation in the past. She has chronic changes on her head CT scan. MRI of the brain and noninvasive carotid study are pending. 3. Mild hyperlipidemia. The patient will continue diet and statin therapy. 4. History of non-insulin dependent diabetes mellitus. Hemoglobin A1c is slightly elevated at 6.7%. The patient follows her sugars at home. She is on diet therapy alone. She does not want to take medications for diabetes. 5. History of mild tremor with perhaps early Parkinson's disease. The patient denies having Parkinson's disease. She continues on medication carbidopa and levodopa under the guidance of her outpatient neurologist. 6. History of diffuse osteoarthritis, currently stable. PLAN: 1. Discussed with the patient. I will follow her up in the outpatient setting. The patient will be restarted back on blood pressure medication. We will try and keep her systolic blood pressure in 135-140 range with diastolics in the low 80s. 2. If her head MRI and noninvasive carotid study are unremarkable in all likelihood, the patient can be discharged home later today. Thank you for letting me partake and share in the care of our mutual patient. Mayo Cordova MD
--- NOTE | 2018-03-09 13:56 | MRI ---
Date of service: 03/09/2018 PROCEDURE: MRI BRAIN WITH AND WITHOUT CONTRAST HISTORY: tia COMPARISON: None available. TECHNIQUE: Multiplanar, multisequence MR images of the brain were obtained with and without intravenous contrast enhancement. 15 cc of Omniscan FINDINGS: HEMORRHAGE: None DWI: No evidence of an acute or early subacute infarction. BRAIN PARENCHYMA: No mass,mass effect or edema. Severe chronic microvascular changes are seen in the periventricular white matter and basal ganglia bilaterally. There are no acute findings ENHANCEMENT: No abnormal intracranial enhancement. VENTRICLES: Unremarkable. No hydrocephalus. CRANIUM: Unremarkable. ORBITS: Grossly unremarkable. PARANASAL SINUSES/MASTOIDS: Clear VASCULAR SYSTEM: Skull base flow voids intact. OTHER FINDINGS: None . IMPRESSION: No acute intracranial findings
--- NOTE | 2018-03-09 14:02 | CARD ---
APPROVED REPORT Date of service: 03/08/2018 EKG Measurement Heart [id number] <Conclusion> Normal sinus rhythm Septal infarct, age undetermined Abnormal ECG
[2018-03-09 14:23] VITALS: BP 126/79; PULSE 90
--- NOTE | 2018-03-09 14:23 | DS ---
HISTORY OF PRESENT ILLNESS: The patient is 82 years old, seen and examined. She states she feel alright, wants to go home as soon as MRI is done and no focal deficit. No weakness, no numbness. PHYSICAL EXAMINATION: VITAL SIGNS: She is afebrile, pulse 65, respirations 20, blood pressure 147/68. LUNGS: Bilateral good airflow. No rhonchi or crackle. HEART: S1, S2 audible. ABDOMEN: Soft, nontender. No rebound, no guarding. NEUROLOGICAL: The patient is awake, alert, oriented, communicative. LABORATORY DATA: Her triglycerides 163, total cholesterol 120, LDL is 32, HDL is 60. She had carotid Doppler done, is pending. MRI of the brain is pending. ASSESSMENT: 1. Questionable transient ischemic attack versus lacunar infarct. 2. Hypertension. 3. History of transient ischemic attack in the past. 4. Hypothyroidism. 5. Questionable Parkinson disease. PLAN: We will follow up MRI, follow up carotid Doppler. Once they are negative, the patient can be discharged home later on today. She will follow up with Dr. Rogers. Question is if the patient did have TIA while on full dose aspirin, we will need to add Plavix and she can follow up with Dr. Rogers as outpatient. Kami Montague MD
--- NOTE | 2018-03-09 19:35 | CP.PCM.CON ---
History of Present Illness - History of Present Illness History of Present Illness: PGY-2 neurology progress note for Dr Brooks Mrs Du is a 82 year old female with a PMHx of HTN, HLD, previous TIAs who presented to the ED for left arm numbness which lasted for about 10 minutes and then resolved. She called her neurologist, Dr Rogers, who advised her to come to the ED. In the ED she was asymptomatic. She denied any focal weakness, slurred speech, numbness/tingling or any visual changes. Patient denies any fever, chills, nausea, vomiting, diarrhea, abdominal pain, chest pain, shortness of breath, cough, headache, neck pain, back pain or any other complaints. PMHx: HTN, HLD, previous TIAs All: NKA Review of Systems - Constitutional Constitutional: absent: Chills, Fever - EENT Eyes: absent: Blind Spots, Blurred Vision Nose/Mouth/Throat: absent: Nasal Congestion - Cardiovascular Cardiovascular: absent: Chest Pain - Respiratory Respiratory: absent: Cough - Gastrointestinal Gastrointestinal: absent: Abdominal Pain - Genitourinary Genitourinary: absent: Dysuria - Musculoskeletal Musculoskeletal: absent: Arthralgias - Integumentary Integumentary: absent: Bleeding Lesions - Neurological Neurological: absent: Confusion, Convulsions, Disequilibrium, Focal Weakness, Lack of Coordination, Syncope, Tingling, Vertigo, Weakness Past Patient History - Infectious Disease Hx of Infectious Diseases: None - Tetanus Immunizations Tetanus Immunization: Unknown - Past Social History Smoking Status: Never Smoked - CARDIAC Hx Hypertension: Yes - PULMONARY Hx Respiratory Disorders: No - NEUROLOGICAL Hx Paralysis: No Hx Transient Ischemic Attacks (TIA): Yes - HEENT Hx HEENT Problems: Yes (sx for deviated septum and tonsils) - RENAL Hx Chronic Kidney Disease: No Other/Comment: #rd Kidney - ENDOCRINE/METABOLIC Hx Diabetes Mellitus Type 2: Yes Hx Hypothyroidism: Yes - HEMATOLOGICAL/ONCOLOGICAL Hx Blood Transfusions: No Hx Blood Transfusion Reaction: No - INTEGUMENTARY Hx Dermatological Problems: Yes Hx Basil Cell: Yes - MUSCULOSKELETAL/RHEUMATOLOGICAL Hx Falls: Yes - GASTROINTESTINAL Hx Gastrointestinal Disorders: Yes (colon polyps removed 2 yrs ago) - GENITOURINARY/GYNECOLOGICAL Hx Genitourinary Disorders: No - PSYCHIATRIC Hx Emotional Abuse: No Hx Physical Abuse: No Hx Substance Use: No - SURGICAL HISTORY Hx Hysterectomy: Yes - ANESTHESIA Hx Anesthesia Reactions: Yes Hx Malignant Hyperthermia: No Meds Home Medications: Home Medication List Medication Instructions Recorded Confirmed Type Aspirin 81 mg PO DAILY #30 tab.chew 03/09/18 Rx Clopidogrel [Plavix] 75 mg PO DAILY #30 tab 03/09/18 Rx Allergies/Adverse Reactions: Allergies Allergy/AdvReac Type Severity Reaction Status Date / Time No Known Allergies Allergy Verified 05/27/17 17:30 Physical Exam - Constitutional Appears: Well, No Acute Distress - Head Exam Head Exam: ATRAUMATIC, NORMAL INSPECTION - Eye Exam Eye Exam: EOMI, PERRL Pupil Exam: NORMAL ACCOMODATION - ENT Exam ENT Exam: Mucous Membranes Moist - Neck Exam Neck exam: Positive for: Normal Inspection - Respiratory Exam Respiratory Exam: Clear to Auscultation Bilateral, NORMAL BREATHING PATTERN. absent: Rales, Rhonchi, Wheezes - Cardiovascular Exam Cardiovascular Exam: REGULAR RHYTHM, +S1, +S2. absent: Tachycardia, JVD - GI/Abdominal Exam GI & Abdominal Exam: Normal Bowel Sounds, Soft. absent: Tenderness - Extremities Exam Extremities exam: Positive for: normal inspection - Neurological Exam Neurological exam: Alert, CN II-XII Intact, Normal Gait, Oriented x3, Reflexes Normal - Skin Skin Exam: Normal Color, Warm Results - Vital Signs Recent Vital Signs: Last Vital Signs Temp 97.6 F 03/09/18 08:43 Pulse 90 03/09/18 14:20 Resp 20 03/09/18 08:43 BP 126/79 03/09/18 14:20 Pulse Ox 94 L 03/09/18 08:43 - Labs Result Diagrams: 03/08/18 15:35 03/08/18 15:35 Labs: Laboratory Results - last 24 hr 03/08/18 03/09/18 19:23 15:58 Plt P2Y12 React Units 239 Urine Color Yellow Urine Appearance Clear Urine pH 6.5 Ur Specific [place] 1.015 Urine Protein Negative Urine Glucose (UA) Negative Urine Ketones Negative Urine Blood Negative Urine Nitrate Negative Urine Bilirubin Negative Urine Urobilinogen 0.2 Ur Leukocyte Esterase Trace H Urine RBC 0 - 2 Urine WBC 0 - 2 Ur Epithelial Cells 0 - 2 Assessment & Plan - Assessment and Plan (Free Text) Plan: Mrs Du is a 82 year old female with a PMHx of HTN, HLD, previous TIAs who presented to the ED for left arm numbness which lasted for about 10 minutes: Left-Arm Numbness, Resolved -Likely this patient with a hx of TIAs had another TIA today given quick resolution of symptoms (NIHSS 0) and no new findings on imaging -Instructed patient to switch from aspirin 325mg to plavix 75mg - ordered for PRU test (platelet function assay) to check if plavix will be therapeutic ( loading dose of plavix 300mg was given in ED) -Patient was instructed to follow-up with her neurologist Dr Rogers -Imaging: -CT Head: * Severe chronic microvascular changes in the periventricular white matter. No acute intracranial findings. -Brain MRI w/ and w/o contrast: * No acute intracranial findings -Carotid Ultrasound: * Pending report. Preliminary finding were unremarkable. Case discussed with neurologist Dr Brooks
--- NOTE | 2018-03-09 20:19 | US ---
PROCEDURE: Bilateral carotid artery duplex ultrasound HISTORY: Carotid stenosis syncope PHYSICIAN(S): Mushtaq Sales MD. TECHNIQUE: Duplex sonography and color-flow Doppler were used to evaluate the carotid bifurcations and limited segments of the vertebral arteries bilaterally. FINDINGS: There is mild to moderate smooth heterogeneous plaque noted at the carotid bifurcations bilaterally. The peak systolic velocity in the proximal right internal carotid artery is 85 cm/sec. This corresponds to a 20 to 39% proximal right ICA stenosis. Normal systolic velocities are noted in the proximal right external carotid artery. There is antegrade flow in the right vertebral artery. The peak systolic velocity in the proximal left internal carotid artery is 124 cm/sec. This corresponds to a 40-59 percent proximal left ICA stenosis. Normal systolic velocities are noted in the proximal left external carotid artery. There is antegrade flow in the left vertebral artery. IMPRESSION: 1. 40-59 percent proximal left ICA stenosis 2. 20-39 percent proximal right ICA stenosis 3. Antegrade flow in both vertebral arteries
== END 2018-03-09 17:29 | disposition home or self-care (01) ==
LOC: ED 14:50 → ERH 16:44 → 3RSO 21:00
PROVIDERS: ADMIT Internal Medicine; ATTEND Internal Medicine
DX: R20.0 Anesthesia of skin (principal); I10 Essential (primary) hypertension; E78.5 Hyperlipidemia, unspecified; E11.9 Type 2 diabetes mellitus without complications; M85.80 Other specified disorders of bone density and structure, unspecified site; E03.9 Hypothyroidism, unspecified; Z86.73 Personal history of transient ischemic attack (TIA), and cerebral infarction without residual deficits; Z85.828 Personal history of other malignant neoplasm of skin; Z86.010 Personal history of colon polyps; Z79.82 Long term (current) use of aspirin
CPT/HCPCS: 36415; 70450; 70553; 71045; 80053; 80061; 81001; 82139; 83036; 84484; 85025; 85610; 85730; 86850; 86900; 87086; 93005; 93880; 97161; 97530; 99285; A9579; G0378; G8978; G8979; J7030